=== PATIENT | male | born 1965 | race Caucasian/White ===

== ENCOUNTER 2016-11-19 17:56 | Emergency (ER) | payer MEDICAID ==
[2016-11-19 18:07] VITALS: BP 130/83
[2016-11-19] MEDS ORDERED: LORazepam 2 MG/ML MDV IVPUSH ONE (18:37)
[2016-11-19] MEDS ORDERED: Sodium Chloride 0.9% 1,000 ML IV SCH (18:45)
--- NOTE | 2016-11-19 18:57 | EDM.PDOC ---
[id number] 4d DIVERTICULITIS Time Seen by Provider: 11/19/16 18:15 Source: Reports: Patient, Family History Limitations: Reports: No limitations - History of Present Illness INITIAL COMMENTS - FREE TEXT/NARRATIVE: 51-year-old male with recurring gastrointestinal symptoms, pain, and known chronic recurring diverticulitis presents with 2 days of increased pain, diarrhea with hematochezia and nausea. He had a flareup 2 weeks ago but had improved but has never gone away completely. Timing/Duration: Reports: Day(s): (Worse for the last 2 days) Quality: Reports: cramping, stabbing Severity: moderate Associated Symptoms: Reports: diarrhea, bloody stools. Denies: chest pain, back pain - Related Data Allergies/ADRs: Allergies Allergy/AdvReac Type Severity Reaction Status Date / Time No Known Allergies Allergy Verified 11/19/16 18:07 Home Meds: Home Meds Esomeprazole [NexIUM] 40 mg PO DAILY 10/07/13 [History] Past Medical History HEENT History: Reports: Impaired vision Gastrointestinal History: Reports: Diverticulosis, Hiatal hernia Musculoskeletal History: Reports: Other (see below) Other Musculoskeletal History: Previous right hand procedure. Knee surgery Neurological History: Reports: Other (see below) Other Neuro History: Johnson's palsy Psychiatric History: Reports: Anxiety - Infectious Disease History Infectious Disease History: Reports: Chicken pox, Shingles - Past Surgical History HEENT Surgical History: Reports: Tonsillectomy Musculoskeletal Surgical History: Reports: Arthroscopic knee, Carpal tunnel Social & Family History - Tobacco Use Smoking Status *Q: Never Smoker Packs/Tins Daily: 0.5 Second Hand Smoke Exposure: No - Caffeine Use Caffeine Use: Reports: Coffee, Soda - Recreational Drug Use Recreational Drug Use: No ED ROS GENERAL - Review of Systems Review Of Systems: See Below Constitutional: Reports: chills, malaise HEENT: Reports: No symptoms Respiratory: Denies: Shortness of Breath Cardiovascular: Denies: Chest pain GI/Abdominal: Reports: Abdominal pain, Diarrhea, Hematochezia, Nausea : Reports: dysuria Skin: Reports: no symptoms Neurological: Reports: No Symptoms Psychiatric: Reports: Anxiety ED EXAM, GI/ABD - Physical Exam Exam: See Below Exam Limited By: No limitations General Appearance: alert, no apparent distress, anxious Eyes: bilateral: normal appearance (Normal hydration, no jaundice) Respiratory/Chest: no respiratory distress, lungs clear GI/Abdominal: soft, tenderness (Very tender with guarding in the suprapubic and left lower quadrant areas) Course - Vital Signs Last Recorded V/S: Last Vital Signs Temp 97.0 F 11/19/16 18:17 Pulse 75 11/19/16 18:17 Resp 16 11/19/16 18:17 BP 130/83 11/19/16 18:17 Pulse Ox 98 11/19/16 18:17 - Orders/Labs/Meds Orders: Active Orders 24 hr Category Date Time Status Abdomen Pelvis w Cont [CT] Stat Exams 11/19/16 19:16 Taken Iopamidol [Isovue-300 (61%)] Med 11/19/16 19:45 Active 135 ml IV . DIRECTED Sodium Chloride 0.9% [Normal Saline] 1,000 ml Med 11/19/16 18:45 Active IV ASDIRECTED Sodium Chloride 0.9% [Normal Saline] 80 ml Med 11/19/16 19:45 Active IV ASDIRECTED Sodium Chloride 0.9% [Saline Flush] Med 11/19/16 19:35 Active 10 ml FLUSH ASDIRECTED PRN Medication Orders Sodium Chloride (Normal Saline) 1,000 mls @ 500 mls/hr IV ASDIRECTED KEVIN Last Admin: 11/19/16 18:48 Dose: 500 mls/hr Sodium Chloride (Normal Saline) 80 mls @ 3 mls/sec IV ASDIRECTED KEVIN Last Admin: 11/19/16 19:54 Dose: 3 mls/sec Iopamidol (Isovue-300 (61%)) 135 ml IV . DIRECTED KEVIN Last Admin: 11/19/16 19:54 Dose: 135 ml Sodium Chloride (Saline Flush) 10 ml FLUSH ASDIRECTED PRN PRN Reason: Keep Vein Open Last Admin: 11/19/16 19:54 Dose: 10 ml Labs: Laboratory Tests 11/19/16 11/19/16 Range/Units 18:46 18:46 WBC 10.5 (4.5-11.0) K/uL RBC 4.63 (4.30-5.90) M/uL Hgb 14.2 (12.0-15.0) g/dL Hct 41.4 (40.0-54.0) % MCV 89 (80-98) fL MCH 31 (27-31) pg MCHC 34 (32-36) % Plt Count 204 (150-400) K/uL Neut % (Auto) 61 (36-66) % Lymph % (Auto) 28 (24-44) % [place] % (Auto) 7 H (2-6) % Eos % (Auto) 3 (2-4) % Baso % (Auto) 1 (0-1) % Sodium 143 (140-148) mmol/L Potassium 3.7 (3.6-5.2) mmol/L Chloride 106 (100-108) mmol/L Carbon Dioxide 29 (21-32) mmol/L Anion Gap 8.0 (5.0-14.0) mmol/L BUN 12 (7-18) mg/dL Creatinine 1.1 (0.8-1.3) mg/dL Est Cr Clr Drug Dosing 89.79 mL/min Estimated GFR (MDRD) > 60 (>60) Glucose 96 (74-106) mg/dL Calcium 8.2 L (8.5-10.1) mg/dL Meds: Medications Generic Name Dose Route Start Last Admin Trade Name Freq PRN Reason Stop Dose Admin Sodium Chloride 1,000 mls @ 500 mls/hr 11/19/16 18:45 11/19/16 18:48 Normal Saline IV 500 mls/hr ASDIRECTED KEVIN Administration Sodium Chloride 80 mls @ 3 mls/sec 11/19/16 19:45 11/19/16 19:54 Normal Saline IV 3 mls/sec ASDIRECTED KEVIN Administration Iopamidol 135 ml 11/19/16 19:45 11/19/16 19:54 Isovue-300 (61%) IV 135 ml . DIRECTED KEVIN Administration Sodium Chloride 10 ml 11/19/16 19:35 11/19/16 19:54 Saline Flush FLUSH 10 ml ASDIRECTED PRN Administration Keep Vein Open Discontinued Medications Generic Name Dose Route Start Last Admin Trade Name Freq PRN Reason Stop Dose Admin Lorazepam 1 mg 11/19/16 18:37 11/19/16 19:04 Ativan IVPUSH 11/19/16 18:38 1 mg ONETIME ONE Administration - Re-Assessments/Exams Free Text/Narrative Re-Assessment/Exam: 11/19/16 18:59 Normal saline at 500 mL an hour along with 1 mg of Ativan IV were given. CBC, BMP were obtained with the intention of obtaining a CT scan of the abdomen and pelvis with IV contrast. 11/19/16 20:58 1 mg of Ativan markedly improved the patient's anxiety. CBC was normal. Chemistry panel was also normal except a mildly low calcium. CT scan was then performed and revealed sigmoid colon wall thickening with stranding indicating a recurrence of his diverticulitis. There is also a possibility of an underlying neoplasm. Patient will be placed back on Flagyl 500 3 times daily and Bactrim DS twice daily for 10 days. He was also given 10 Ativan 1 mg tablets to use when necessary for anxiety and 10 hydrocodone to use very sparingly for extra pain control. If using hydrocodone he needs to also increase fiber, water intake or use MiraLax or stool softeners. She can return anytime if worsening. I emphasized the importance that he needs to have a colonoscopy or at least a sigmoidoscopy after his antibiotic treatment Departure - Departure Time of Disposition: 21:32 Disposition: Home, Self-Care 01 Condition: good Clinical Impression: Abdominal pain Qualifiers: Abdominal location: lower abdomen, unspecified Qualified Code(s): R10.30 - Lower abdominal pain, unspecified Diverticulitis Qualifiers: Diverticulitis site: large intestine Diverticulitis bleeding: with bleeding Diverticulitis complication: without perforation or abscess Qualified Code(s): K57.33 - Diverticulitis of large intestine without perforation or abscess with bleeding Instructions: Diverticulitis Referrals: PCP,None [Primary Care Provider] - Forms: ED Department Discharge Care Plan Goals: Take antibiotics as prescribed. Naproxen for pain should help and add stronger pain medications if needed. Use Ativan as prescribed for breakthrough anxiety. Recheck in the next several weeks to discuss a followup colonoscopy, or return sooner if not improving satisfactorily. Avoiding constipation is important. Consider getting a primary care provider at the clinic to follow progress. - My Orders Last 24 Hours: My Active Orders 11/19/16 18:45 Sodium Chloride 0.9% [Normal Saline] 1,000 ml IV ASDIRECTED 11/19/16 19:16 Abdomen Pelvis w Cont [CT] Stat 11/19/16 19:35 Sodium Chloride 0.9% [Saline Flush] 10 ml FLUSH ASDIRECTED PRN 11/19/16 19:45 Iopamidol [Isovue-300 (61%)] 135 ml IV . DIRECTED Sodium Chloride 0.9% [Normal Saline] 80 ml IV ASDIRECTED - Assessment/Plan Last 24 Hours: My Active Orders 11/19/16 18:45 Sodium Chloride 0.9% [Normal Saline] 1,000 ml IV ASDIRECTED 11/19/16 19:16 Abdomen Pelvis w Cont [CT] Stat 11/19/16 19:35 Sodium Chloride 0.9% [Saline Flush] 10 ml FLUSH ASDIRECTED PRN 11/19/16 19:45 Iopamidol [Isovue-300 (61%)] 135 ml IV . DIRECTED Sodium Chloride 0.9% [Normal Saline] 80 ml IV ASDIRECTED
[2016-11-19] MEDS ORDERED: Sodium Chloride 0.9% 10 ML Syringe FLUSH PRN (19:35)
[2016-11-19] MEDS ORDERED: Sodium Chloride 0.9% 80 ML IV SCH (19:45)
[2016-11-19] MEDS ORDERED: Iopamidol 612 MG/ML 150 ML Bottle IV SCH (19:45)
== END 2016-11-19 21:15 | disposition home or self-care (01) ==
LOC: JP.ED 17:56
DX: K57.33 Diverticulitis of large intestine without perforation or abscess with bleeding (principal); F41.9 Anxiety disorder, unspecified; Z98.890 Other specified postprocedural states; Z79.899 Other long term (current) drug therapy
CPT/HCPCS: 36415; 74177; 80048; 85025; 96361; 96374; 99285; J2060; J7030; J7040; J7050

== ENCOUNTER 2016-12-17 10:54 | Emergency (ER) | payer MEDICAID ==
[2016-12-17 11:11] VITALS: BP 137/90
--- NOTE | 2016-12-17 12:00 | EDM.PDOC ---
ED HPI GENERAL MEDICAL PROBLEM - General Chief Complaint: Abdominal Pain Stated Complaint: DIVERTICULITIS Time Seen by Provider: 12/17/16 11:23 Source of Information: Reports: Patient History Limitations: Reports: No Limitations - History of Present Illness INITIAL COMMENTS - FREE TEXT/NARRATIVE: History of present illness: [51-year-old male with a somewhat complex history that goes back over a year. He is having trouble with melena and bright red blood per rectum for over a year. He's had multiple bouts of diverticulitis. He's had more than [address] He's been told that he needs to have surgery or colonoscopy. In spite of all this he's been busy working and has delayed getting these things done. He presents now today with his who is crying and concerned he starting to have some suprapubic abdominal pain. He has lost about 120 pounds in the last year. My suspicion is that they know that he may have cancer but they're in denial and don't want to hear the bad news.] Review of systems: As per history of present illness and below otherwise all systems reviewed and negative. Past medical history: As per history of present illness and as reviewed below otherwise noncontributory. Surgical history: As per history of present illness and as reviewed below otherwise noncontributory. Social history: No reported history of drug or alcohol abuse. Family history: As per history of present illness and as reviewed below otherwise noncontributory. Physical exam: HEENT: Atraumatic, normocephalic, pupils reactive, negative for conjunctival pallor or scleral icterus, mucous membranes moist, throat clear, neck supple, nontender, trachea midline. Lungs: Clear to auscultation, breath sounds equal bilaterally, chest nontender. Heart: S1S2, regular, negative for clicks, rubs, or JVD. Abdomen: he has some suprapubic tenderness to palpation but no masses appreciated. Pelvis: Stable nontender. Genitourinary: Deferred. Rectal: Deferred. Extremities: Atraumatic, negative for cords or calf pain. Neurovascular unremarkable. Neuro: Awake, alert, oriented. Cranial nerves II through XII unremarkable. Cerebellum unremarkable. Motor and sensory unremarkable throughout. Exam nonfocal. Diagnostics: [CBC complete metabolic panel EKG and chest x-ray are being done in preparation for a colonoscopy on Saturday] Therapeutics: [] Impression: [diverticulitis with CT evidence concerning for a neoplastic process] Plan: [Dr. Livingston has visited with the patient and his and we are setting him up for colonoscopy on Saturday.] Definitive disposition and diagnosis as appropriate pending reevaluation and review of above. Abdomen Pain Score (Numeric/FACES): 8 - Related Data Allergies Allergy/AdvReac Type Severity Reaction Status Date / Time No Known Allergies Allergy Verified 12/17/16 11:13 Home Meds: Home Meds Esomeprazole [NexIUM] 40 mg PO DAILY 10/07/13 [History] LORazepam [Ativan] 0.5 mg PO Q6HR PRN 12/17/16 [History] Metronidazole [IJD: metroNIDAZOLE] 500 mg PO TID 12/17/16 [History] Sulfamethoxazole/Trimethoprim [Sulfamethoxazole-Tmp Ds Tablet] 1 tab PO BID [History] Past Medical History HEENT History: Reports: Impaired Vision Gastrointestinal History: Reports: Diverticulosis, Hiatal Hernia Musculoskeletal History: Reports: Other (See Below) Other Musculoskeletal History: Previous right hand procedure. Knee surgery Neurological History: Reports: Other (See Below) Other Neuro History: Johnson's palsy Psychiatric History: Reports: Anxiety - Infectious Disease History Infectious Disease History: Reports: Chicken Pox, Shingles - Past Surgical History Musculoskeletal Surgical History: Reports: Arthroscopic Knee, Carpal Tunnel Social & Family History - Tobacco Use Smoking Status *Q: Never Smoker Packs/Tins Daily: 0.5 Second Hand Smoke Exposure: No - Caffeine Use Caffeine Use: Reports: Coffee, Soda - Recreational Drug Use Recreational Drug Use: No ED ROS GENERAL - Review of Systems Review Of Systems: ROS reveals no pertinent complaints other than HPI. ED EXAM, GI/ABD - Physical Exam Exam: See Below Course - Vital Signs Last Recorded V/S: Last Vital Signs Temp 35.9 C 12/17/16 11:19 Pulse 95 12/17/16 11:19 Resp 16 12/17/16 11:19 BP 137/90 12/17/16 11:19 Pulse Ox 96 12/17/16 11:19 - Orders/Labs/Meds Orders: Active Orders 24 hr Category Date Time Status EKG Documentation Completion [RC] ASDIRECTED Care 12/17/16 11:53 Active Chest 2V [CR] Stat Exams 12/17/16 11:54 Ordered CBC WITH AUTO DIFF [HEME] Stat Lab 12/17/16 11:52 Ordered COMPREHENSIVE METABOLIC PN,CMP [CHEM] Stat Lab 12/17/16 11:52 Ordered EKG 12 Lead [EK] Stat Ther 12/17/16 11:53 Ordered Departure - Departure Time of Disposition: 12:00 Disposition: Home, Self-Care 01 Condition: fair Clinical Impression: Diverticulitis Qualifiers: Diverticulitis site: large intestine Diverticulitis bleeding: with bleeding Diverticulitis complication: unspecified complication status Qualified Code(s): K57.33 - Diverticulitis of large intestine without perforation or abscess with bleeding - Discharge Information Forms: ED Department Discharge - My Orders Last 24 Hours: My Active Orders 12/17/16 11:52 CBC WITH AUTO DIFF [HEME] Stat COMPREHENSIVE METABOLIC PN,CMP [CHEM] Stat 12/17/16 11:53 EKG Documentation Completion [RC] ASDIRECTED EKG 12 Lead [EK] Stat 12/17/16 11:54 Chest 2V [CR] Stat - Assessment/Plan Last 24 Hours: My Active Orders 12/17/16 11:52 CBC WITH AUTO DIFF [HEME] Stat COMPREHENSIVE METABOLIC PN,CMP [CHEM] Stat 12/17/16 11:53 EKG Documentation Completion [RC] ASDIRECTED EKG 12 Lead [EK] Stat 12/17/16 11:54 Chest 2V [CR] Stat
--- NOTE | 2016-12-18 10:18 | CR ---
Chest 2V HISTORY: No Clinical Info FINDINGS: Heart size within normal limits. Pulmonary vasculature within normal limits. No evidence f or focal consolidation or cardiopulmonary process. IMPRESSION: No radiographic evidence for acute cardiopulmonary process.
== END 2016-12-17 12:48 | disposition home or self-care (01) ==
LOC: JP.ED 10:54
DX: K57.33 Diverticulitis of large intestine without perforation or abscess with bleeding (principal); F41.9 Anxiety disorder, unspecified; Z98.890 Other specified postprocedural states; Z79.899 Other long term (current) drug therapy
CPT/HCPCS: 36415; 71020; 71020-26; 80053; 85025; 93005; 99284-25

== ENCOUNTER 2016-12-19 19:05 | Inpatient (IN) | payer MEDICAID ==
[2016-12-19] MEDS: Sodium Chloride 0.9% 1,000 ML IV SCH (19:39)
--- NOTE | 2016-12-19 20:34 | EDM.PDOC ---
ED HPI GENERAL MEDICAL PROBLEM - General Chief Complaint: Abdominal Pain Stated Complaint: STOMACH PAIN Time Seen by Provider: 12/19/16 19:07 Source of Information: Reports: Patient History Limitations: Reports: No Limitations - History of Present Illness INITIAL COMMENTS - FREE TEXT/NARRATIVE: History of present illness: [This 51-year-old male comes in basically for admission. He needs a colonoscopy but he does become so weak that we are afraid to is a crack at home. He gets lightheaded and dizzy when he stands up and even sitting in a chair he'll breakdown into a sweat. He has an abdominal pelvic CT is concerning for a neoplastic process and he was scheduled for a colonoscopy on Saturday but due to the trouble he is having now or having him come in for an admission and prepped and here and perhaps do a colonoscopy in the morning.] Review of systems: As per history of present illness and below otherwise all systems reviewed and negative. Past medical history: As per history of present illness and as reviewed below otherwise noncontributory. Surgical history: As per history of present illness and as reviewed below otherwise noncontributory. Social history: No reported history of drug or alcohol abuse. Family history: As per history of present illness and as reviewed below otherwise noncontributory. Physical exam: HEENT: Atraumatic, normocephalic, pupils reactive, negative for conjunctival pallor or scleral icterus, mucous membranes moist, throat clear, neck supple, nontender, trachea midline. Lungs: Clear to auscultation Heart: S1S2, regular Abdomen: He has some generalized nonspecific tenderness and marked tenderness in left lower quadrant Extremities: Atraumatic, negative for cords or calf pain. Neurovascular unremarkable. Neuro: Awake, alert, oriented. Exam nonfocal. Diagnostics: [CBC complete dental panel and UA have been ordered he is getting IV fluids] Therapeutics: [] Impression: [Abdominal pain with CT evidence for concerning for a possible neoplastic process he needs a colonoscopy] Plan: [Patient will be admitted Franca Neil here seeing him] Definitive disposition and diagnosis as appropriate pending reevaluation and review of above. Suprapubic Pain Score (Numeric/FACES): 5 - Related Data Allergies Allergy/AdvReac Type Severity Reaction Status Date / Time No Known Allergies Allergy Verified 12/17/16 11:13 Home Meds: Home Meds Esomeprazole [NexIUM] 40 mg PO DAILY 10/07/13 [History] LORazepam [Ativan] 0.5 mg PO Q6HR PRN 12/17/16 [History] Metronidazole [IJD: metroNIDAZOLE] 500 mg PO TID 12/17/16 [History] Sulfamethoxazole/Trimethoprim [Sulfamethoxazole-Tmp Ds Tablet] 1 tab PO BID [History] Past Medical History HEENT History: Reports: Impaired Vision Gastrointestinal History: Reports: Diverticulosis, Hiatal Hernia Musculoskeletal History: Reports: Other (See Below) Other Musculoskeletal History: Previous right hand procedure. Knee surgery Neurological History: Reports: Other (See Below) Other Neuro History: Johnson's palsy Psychiatric History: Reports: Anxiety - Infectious Disease History Infectious Disease History: Reports: Chicken Pox, Mumps, Shingles - Past Surgical History HEENT Surgical History: Reports: Tonsillectomy Musculoskeletal Surgical History: Reports: Arthroscopic Knee, Carpal Tunnel Social & Family History - Tobacco Use Smoking Status *Q: Never Smoker Packs/Tins Daily: 0.5 Second Hand Smoke Exposure: No - Caffeine Use Caffeine Use: Reports: Coffee - Recreational Drug Use Recreational Drug Use: No ED ROS GENERAL - Review of Systems Review Of Systems: ROS reveals no pertinent complaints other than HPI. ED EXAM, GI/ABD - Physical Exam Exam: See Below Course - Vital Signs Last Recorded V/S: Last Vital Signs Temp 36.5 C 12/19/16 19:38 Pulse 72 12/19/16 19:38 Resp 16 12/19/16 19:38 BP 142/86 H 12/19/16 19:38 Pulse Ox 98 12/19/16 19:38 - Orders/Labs/Meds Orders: Active Orders 24 hr Category Date Time Status UA W/MICROSCOPIC [URIN] Stat Lab 12/19/16 19:08 Uncollected Sodium Chloride 0.9% [Normal Saline] 1,000 ml Med 12/19/16 19:15 Active IV ASDIRECTED Medication Orders Sodium Chloride (Normal Saline) 1,000 mls @ 150 mls/hr IV ASDIRECTED KEVIN Last Admin: 12/19/16 19:39 Dose: 150 mls/hr Labs: Laboratory Tests 12/19/16 12/19/16 Range/Units 19:08 19:08 WBC 7.7 (4.5-11.0) K/uL RBC 4.79 (4.30-5.90) M/uL Hgb 14.7 (12.0-15.0) g/dL Hct 41.7 (40.0-54.0) % MCV 87 (80-98) fL MCH 31 (27-31) pg MCHC 35 (32-36) % Plt Count 238 (150-400) K/uL Neut % (Auto) 55 (36-66) % Lymph % (Auto) 32 (24-44) % [place] % (Auto) 9 H (2-6) % Eos % (Auto) 4 (2-4) % Baso % (Auto) 2 H (0-1) % Sodium 143 (140-148) mmol/L Potassium 3.7 (3.6-5.2) mmol/L Chloride 106 (100-108) mmol/L Carbon Dioxide 27 (21-32) mmol/L Anion Gap 10.4 (5.0-14.0) mmol/L BUN 9 (7-18) mg/dL Creatinine 1.4 H (0.8-1.3) mg/dL Est Cr Clr Drug Dosing 70.55 mL/min Estimated GFR (MDRD) 53 L (>60) Glucose 119 H (74-106) mg/dL Calcium 8.7 (8.5-10.1) mg/dL Total Bilirubin 0.2 (0.2-1.0) mg/dL AST 25 (15-37) U/L ALT 24 (12-78) U/L Alkaline Phosphatase 98 (46-116) U/L Total Protein 7.2 (6.4-8.2) g/dL Albumin 3.3 L (3.4-5.0) g/dL Globulin 3.9 H (2.3-3.5) g/dL Albumin/Globulin Ratio 0.9 L (1.2-2.2) Meds: Medications Generic Name Dose Route Start Last Admin Trade Name Freq PRN Reason Stop Dose Admin Sodium Chloride 1,000 mls @ 150 mls/hr 12/19/16 19:15 12/19/16 19:39 Normal Saline IV 150 mls/hr ASDIRECTED KEVIN Administration Departure - Departure Time of Disposition: 20:34 Disposition: Home, Self-Care 01 Condition: fair Clinical Impression: Weakness Abdominal pain Qualifiers: Abdominal location: unspecified location Qualified Code(s): R10.9 - Unspecified abdominal pain - Discharge Information Forms: ED Department Discharge - My Orders Last 24 Hours: My Active Orders 12/19/16 19:08 UA W/MICROSCOPIC [URIN] Stat 12/19/16 19:15 Sodium Chloride 0.9% [Normal Saline] 1,000 ml IV ASDIRECTED - Assessment/Plan Last 24 Hours: My Active Orders 12/19/16 19:08 UA W/MICROSCOPIC [URIN] Stat 12/19/16 19:15 Sodium Chloride 0.9% [Normal Saline] 1,000 ml IV ASDIRECTED
[2016-12-19] MEDS ORDERED: Naloxone 0.4 MG/ML SDV IVPUSH PRN (21:27)
[2016-12-19] MEDS ORDERED: Acetaminophen 325 MG Tab PO PRN (21:27)
[2016-12-19] MEDS ORDERED: HYDROmorphone/Normal Saline 15 MG/30 ML PCA IV PRN (21:27)
[2016-12-19] MEDS ORDERED: Zolpidem 5 MG Tab PO PRN (21:27)
[2016-12-19] MEDS ORDERED: LORazepam 2 MG/ML MDV IV PRN (21:27)
[2016-12-19] MEDS ORDERED: Albuterol 0.083% 2.5 MG/3 ML Neb Soln NEB PRN (21:27)
[2016-12-19] MEDS: Pantoprazole 40 MG Vial IV SCH (21:58)
[2016-12-19] MEDS ORDERED: Bisacodyl 5 MG Tab PO ONE (22:00)
[2016-12-19] MEDS ORDERED: Polyethylene Glycol 3350 Powder 17 GM Packet PO ONE (22:00)
[2016-12-19] MEDS ORDERED: Polyethylene Glycol 3350 Powder 238 GM Bot PO ONE (22:12)
--- NOTE | 2016-12-19 22:45 | PCM.HP ---
H&P History of Present Illness - General Date of Service: 12/19/16 Admit Problem/Dx: Admission Diagnosis/Problem Admission Diagnosis/Problem Abdominal pain Source of Information: Patient, Family () - History of Present Illness Initial Comments - Free Text/Narative: - History of Present Illness INITIAL COMMENTS - FREE TEXT/NARRATIVE: History of present illness: [This 51-year-old male comes in basically for admission. He needs a colonoscopy but he does become so weak that we are afraid to do at home. He gets lightheaded and dizzy when he stands up and even sitting in a chair he'll breaks into a sweat. He has an abdominal pelvic CT is concerning for a neoplastic process and he was scheduled for a colonoscopy on Saturday but due to the trouble he is having now or having him come in for an admission and prepped and here and perhaps do a colonoscopy in the morning. reports weight loss of 117 pounds over the past year without diet or exercise. bloody stools for the past few weeks. Review of systems: As per history of present illness and below otherwise all systems reviewed and negative. Past medical history: As per history of present illness and as reviewed below otherwise noncontributory. Surgical history: As per history of present illness and as reviewed below otherwise noncontributory. Social history: No reported history of drug or alcohol abuse. Family history: As per history of present illness and as reviewed below otherwise noncontributory. Onset of Symptoms: Reports: Gradual Duration of Symptoms: Reports: Constant, Getting Worse Location: Reports: Abdomen Quality: Reports: Ache, Sharp Severity: Severe Improves with: Reports: None Worsens with: Reports: Eating Context: Reports: Other (weight loss of 117 pounds, bloody stools, generalized weakness, abdominal pain) Associated Symptoms: Reports: Fever/Chills (cold sweat), Nausea/Vomiting, Shortness of Breath (with activity), Syncope, Weakness Suprapubic Pain Score (Numeric/FACES): 5 - Related Data Allergies/Adverse Reactions: Allergies Allergy/AdvReac Type Severity Reaction Status Date / Time No Known Allergies Allergy Verified 12/17/16 11:13 Home Medications: Home Meds Esomeprazole [NexIUM] 40 mg PO DAILY 10/07/13 [History] LORazepam [Ativan] 0.5 mg PO Q6HR PRN 12/17/16 [History] Metronidazole [IJD: metroNIDAZOLE] 500 mg PO TID 12/17/16 [History] Sulfamethoxazole/Trimethoprim [Sulfamethoxazole-Tmp Ds Tablet] 1 tab PO BID [History] Past Medical History HEENT History: Reports: Impaired Vision Gastrointestinal History: Reports: Diverticulosis, Hiatal Hernia Musculoskeletal History: Reports: Other (See Below) Other Musculoskeletal History: Previous right hand procedure. Knee surgery Neurological History: Reports: Other (See Below) Other Neuro History: Johnson's palsy Psychiatric History: Reports: Anxiety - Infectious Disease History Infectious Disease History: Reports: Chicken Pox, Mumps, Shingles - Past Surgical History HEENT Surgical History: Reports: Tonsillectomy Musculoskeletal Surgical History: Reports: Arthroscopic Knee, Carpal Tunnel Social & Family History - Tobacco Use Smoking Status *Q: Never Smoker Packs/Tins Daily: 0.5 Second Hand Smoke Exposure: No - Caffeine Use Caffeine Use: Reports: Coffee - Recreational Drug Use Recreational Drug Use: No - Living Situation & Occupation Living situation: Reports: Occupation: Employed (lives with and 4 children ages 17yr,14yr,9yr & 7month on [place]) H&P Review of Systems - Review of Systems: Review Of Systems: See Below General: Reports: Weakness, Fatigue, Decreased Appetite, Weight Loss HEENT: Reports: No Symptoms Pulmonary: Reports: Shortness of Breath Cardiovascular: Reports: Lightheadedness, Syncope (near syncope and syncope.) Gastrointestinal: Reports: Abdominal Pain, Bloody Stool, Hematochezia, Nausea, Vomiting Genitourinary: Reports: No Symptoms Musculoskeletal: Reports: No Symptoms Skin: Reports: No Symptoms Psychiatric: Reports: No Symptoms Neurological: Reports: No Symptoms Hematologic/Lymphatic: Reports: No Symptoms Immunologic: Reports: No Symptoms Exam - Exam Exam: See Below - Vital Signs Vital Signs: Last Vital Signs Temp 98.7 C H 12/19/16 21:27 Pulse 76 12/19/16 21:27 Resp 18 12/19/16 21:27 BP 128/81 12/19/16 21:27 Pulse Ox 68 L 12/19/16 21:27 Weight: 87.4 kg - Exam General: Alert, Oriented, Cooperative, Mild Distress HEENT: PERRLA, Conjunctiva Clear, EACs Clear, EOMI, Hearing Intact, Mucosa Moist & [place], Nares Patent, Normal Nasal Septum, Posterior Pharynx Clear, Pupils Equal, Pupils Reactive, TMs Clear Neck: Supple, Trachea Midline Lungs: Clear to Auscultation, Normal Respiratory Effort Cardiovascular: Regular Rate, Regular Rhythm, Normal S1, Normal S2 Abdomen: Soft, Tenderness, Hypoactive Bowel Sounds (Male) Exam: Deferred Rectal (Males) Exam: Deferred Back Exam: Normal Inspection, Full Range of Motion Extremities: Normal Inspection, Normal Pulses Skin: Warm, Dry, Intact Neuro Extensive - Mental Status: Alert, Oriented x3, Normal Mood/Affect Psychiatric: Alert, Normal Affect, Normal Mood - Patient Data Result Diagrams: 12/19/16 19:08 12/19/16 19:08 *Q Meaningful Use (ADM) - VTE *Q VTE Criteria *Q: - Stroke *Q Stroke Criteria *Q: - AMI *Q AMI Criteria *Q: - Problem List (1) Hematochezia SNOMED Code(s): 620632643 ICD Code: K92.1 - MELENA Status: Acute Current Visit: Yes (2) Abdominal pain SNOMED Code(s): 97116085 ICD Code: R10.9 - UNSPECIFIED ABDOMINAL PAIN Status: Acute Priority: High Current Visit: Yes Qualifiers: Abdominal location: generalized Qualified Code(s): R10.84 - Generalized abdominal pain (3) Weakness SNOMED Code(s): 68509479 ICD Code: R53.1 - WEAKNESS Status: Acute Priority: High Current Visit: Yes Problem List Initiated/Reviewed/Updated: Yes Orders Last 24hrs: Active Orders 24 hr Category Date Time Status Patient Status [ADT] Routine ADT 12/19/16 21:27 Active Ambulate [RC] QID Care 12/19/16 21:27 Active Communication Order [RC] STAT Care 12/19/16 21:27 Active Intake and Output [RC] QSHIFT Care 12/19/16 21:27 Active Notify Provider Consults [RC] ASDIRECTED Care 12/19/16 21:27 Active Notify Provider [RC] PRN Care 12/19/16 21:27 Active Oxygen Therapy [RC] PRN Care 12/19/16 21:27 Active TIP FIXER Record [RC] PER UNIT ROUTINE Care 12/19/16 21:27 Active Pulse Oximetry [RC] CONTINUOUS Care 12/19/16 21:27 Active RT Aerosol Therapy [RC] ASDIRECTED Care 12/19/16 21:27 Active Up With Assistance [RC] ASDIRECTED Care 12/19/16 21:27 Active VTE/DVT Education [RC] Per Unit Routine Care 12/19/16 21:27 Active Vital Signs [RC] Q4H Care 12/19/16 21:27 Active Consult to Physician [CONS] Routine Cons 12/19/16 21:27 Ordered Nothing per Oral Now Diet [DIET] Diet 12/19/16 Breakfast Active BASIC METABOLIC PANEL,BMP [CHEM] AM Lab 12/20/16 05:11 Ordered CBC WITH AUTO DIFF [HEME] AM Lab 12/20/16 05:11 Ordered LACTIC ACID [CHEM] AM Lab 12/20/16 05:11 Ordered Acetaminophen [Tylenol] Med 12/19/16 21:27 Active 650 mg PO Q4H PRN Albuterol [Proventil Neb Soln] Med 12/19/16 21:27 Active 2.5 mg NEB Q4H PRN HYDROmorphone/Normal Saline [Dilaudid TIP FIXER 15 MG in NS Med 12/19/16 21:27 Active 30 ML] See Protocol IV ASDIRECTED PRN LORazepam [Ativan] Med 12/19/16 21:27 Active 1 mg IV Q6H PRN Naloxone [Narcan] Med 12/19/16 21:27 Active 0.4 mg IVPUSH Q2M PRN Ondansetron [Zofran] Med 12/19/16 21:27 Active 4 mg IV Q4H PRN Pantoprazole [ProTONIX IV] Med 12/19/16 21:27 Active 40 mg IV Q12H Sodium Chloride 0.9% [Normal Saline] 1,000 ml Med 12/19/16 21:27 Active IV ASDIRECTED Zolpidem [Ambien] Med 12/19/16 21:27 Active 5 mg PO BEDTIME PRN Medication Discontinuation Instructions [OM.PC] Stat Oth 12/19/16 21:27 Ordered Resuscitation Status Routine Resus Stat 12/19/16 20:40 Ordered Medication Orders Acetaminophen (Tylenol) 650 mg PO Q4H PRN PRN Reason: Pain (Mild 1-3)/fever Albuterol (Proventil Neb Soln) 2.5 mg NEB Q4H PRN PRN Reason: Shortness Of Breath/wheezing Hydromorphone HCl (Dilaudid Application Support Administrator 15 Mg In Ns 30 Ml) 0 mg IV ASDIRECTED PRN; Protocol PRN Reason: Pain Last Admin: 12/19/16 21:51 Dose: 15 mg Sodium Chloride (Normal Saline) 1,000 mls @ 150 mls/hr IV ASDIRECTED KEVIN Last Admin: 12/19/16 19:39 Dose: 150 mls/hr Sodium Chloride (Normal Saline) 1,000 mls @ 125 mls/hr IV ASDIRECTED KEVIN Lorazepam (Ativan) 1 mg IV Q6H PRN PRN Reason: Nausea/Vomiting Naloxone HCl (Narcan) 0.4 mg IVPUSH Q2M PRN PRN Reason: Respiratory Distress Ondansetron HCl (Zofran) 4 mg IV Q4H PRN PRN Reason: Nausea/Vomiting Pantoprazole Sodium (Protonix Iv) 40 mg IV Q12H [facility] Last Admin: 12/19/16 21:58 Dose: 40 mg Zolpidem Tartrate (Ambien) 5 mg PO BEDTIME PRN PRN Reason: Sleep Assessment/Plan Comment:: ASSESSMENT / PLAN History of present illness: [This 51-year-old male comes in basically for admission. He needs a colonoscopy but he does become so weak that we are afraid to do at home. He gets lightheaded and dizzy when he stands up and even sitting in a chair he'll breaks into a sweat. He has an abdominal pelvic CT is concerning for a neoplastic process and he was scheduled for a colonoscopy on Saturday but due to the trouble he is having now or having him come in for an admission and prepped and here and perhaps do a colonoscopy in the morning. reports weight loss of 117 pounds over the past year without diet or exercise. bloody stools for the past few weeks. reports on Saturday passed a large hairy blood clot. Plan -Admit to ICU med overflow for further monitoring -IV fluids for rehydration NS at 125 mL per hour -Advise to notify nurses of any chest pain or other symptoms -TIP FIXER dilaudid for pain control -Order for a colonscopy, bowel prep started on admission -And a.m. labs: CBC, BMP Maintenance issues -Orders home meds: hold or changed to IV -Nutrition: NPO -Harrington catheter not indicated at this time -DVT: scd, ambulation -PPI; Protonix 40mg iv bid CODE STATUS: Full Admission status: Admit to ICU medication overflow Admission justification. This patient will be admitted for inpatient services and is medically appropriate meeting medical necessity for inpatient admission as outlined in my documentation. I reasonably expect the patient will require inpatient services that span. Time over 2 midnights. I reasonably expect this patient to be discharged or transferred within 96 hours after admission to the critical [facility]. Disposition; home Primary care provider: no PCP at this time.
[2016-12-20] MEDS: Sodium Chloride 0.9% 1,000 ML IV SCH ×4 (02:24→21:53)
[2016-12-20] MEDS: Pantoprazole 40 MG Vial IV SCH ×2 (08:57→21:52)
--- NOTE | 2016-12-20 09:21 | PCM.PN ---
- General Info Date of Service: 12/20/16 Functional Status: Reports: pain controlled - Review of Systems General: Reports: Weakness. Denies: Fever, Chills Pulmonary: Reports: no symptoms Cardiovascular: Reports: No Symptoms Gastrointestinal: Reports: Abdominal pain. Denies: Decreased appetite, Diarrhea , Difficulty swallowing Systems Review Comment:: This patient is a 51-year-old gentleman is experienced 100 pound weight loss over the past year. He's had 2 recent episodes of diverticulitis and after each hospitalization was recommended that he follow up with a colonoscopy which he's not been able to do yet. He's now reached the point where he eats he developed severe cramping abdominal pain and bloating which did not improve until he's able to have a bowel movement. He's become very weak because of his inability to eat. He was admitted through the emergency department last night CT scan and showed evidence of possible mass in the colon. Plan is to proceed with colonoscopy later today by Dr. Livingston. - Patient Data Vitals - most recent: Last Vital Signs Temp 98.1 F 12/20/16 08:25 Pulse 78 12/20/16 08:25 Resp 17 12/20/16 08:25 BP 128/83 12/20/16 08:25 Pulse Ox 98 12/20/16 08:25 Weight - most recent: 192 lb 10.944 oz I&O - last 24 hours: Intake & Output 12/19/16 12/20/16 12/20/16 22:59 06:59 14:59 Intake Total 1564 Balance 1564 Lab Results last 24 hrs: Laboratory Results - last 24 hr 12/20/16 12/20/16 12/20/16 Range/Units 04:34 04:34 04:34 WBC 6.7 (4.5-11.0) K/uL RBC 4.52 (4.30-5.90) M/uL Hgb 13.8 (12.0-15.0) g/dL Hct 39.6 L (40.0-54.0) % MCV 88 (80-98) fL MCH 31 (27-31) pg MCHC 35 (32-36) % Plt Count 229 (150-400) K/uL Neut % (Auto) 48 (36-66) % Lymph % (Auto) 35 (24-44) % [place] % (Auto) 10 H (2-6) % Eos % (Auto) 5 H (2-4) % Baso % (Auto) 1 (0-1) % Sodium 143 (140-148) mmol/L Potassium 3.9 (3.6-5.2) mmol/L Chloride 109 H (100-108) mmol/L Carbon Dioxide 24 (21-32) mmol/L Anion Gap 13.9 (5.0-14.0) mmol/L BUN 7 (7-18) mg/dL Creatinine 1.2 (0.8-1.3) mg/dL Est Cr Clr Drug Dosing TNP Estimated GFR (MDRD) > 60 (>60) Glucose 104 (74-106) mg/dL Lactic Acid 0.8 (0.4-2.0) mmol/L Calcium 8.5 (8.5-10.1) mg/dL Med Orders - Current: Current Medications Acetaminophen (Tylenol) 650 mg PO Q4H PRN PRN Reason: Pain (Mild 1-3)/fever Albuterol (Proventil Neb Soln) 2.5 mg NEB Q4H PRN PRN Reason: Shortness Of Breath/wheezing Hydromorphone HCl (Dilaudid Chemist 15 Mg In Ns 30 Ml) 0 mg IV ASDIRECTED PRN; Protocol PRN Reason: Pain Last Admin: 12/19/16 21:51 Dose: 15 mg Sodium Chloride (Normal Saline) 1,000 mls @ 125 mls/hr IV ASDIRECTED KEVIN Last Admin: 12/20/16 09:03 Dose: 125 mls/hr Lorazepam (Ativan) 1 mg IV Q6H PRN PRN Reason: Nausea/Vomiting Last Admin: 12/20/16 01:28 Dose: 1 mg Naloxone HCl (Narcan) 0.4 mg IVPUSH Q2M PRN PRN Reason: Respiratory Distress Ondansetron HCl (Zofran) 4 mg IV Q4H PRN PRN Reason: Nausea/Vomiting Pantoprazole Sodium (Protonix Iv) 40 mg IV Q12H [facility] Last Admin: 12/20/16 08:57 Dose: 40 mg Zolpidem Tartrate (Ambien) 5 mg PO BEDTIME PRN PRN Reason: Sleep Discontinued Medications Bisacodyl (Dulcolax) 20 mg PO ASDIRECTED ONE Stop: 12/19/16 22:01 Last Admin: 12/19/16 22:15 Dose: 20 mg Sodium Chloride (Normal Saline) 1,000 mls @ 150 mls/hr IV ASDIRECTED KEVIN Last Admin: 12/20/16 02:24 Dose: 150 mls/hr Polyethylene Glycol (Miralax) 0 gm PO ONETIME ONE Stop: 12/19/16 22:01 Last Admin: 12/19/16 22:26 Dose: Not Given Polyethylene Glycol (Miralax) 238 gm PO ONETIME ONE Stop: 12/19/16 22:13 Last Admin: 12/19/16 22:34 Dose: 238 gram - Exam General: alert, oriented, cooperative, mild distress Lungs: Clear to auscultation, Normal respiratory effort Cardiovascular: Regular Rate, Regular Rhythm, No Murmurs Abdomen: bowel sounds present, soft, no tenderness, no distension Extremities: no edema Skin: warm, dry, intact - Problem List Review Problem List Initiated/Reviewed/Updated: Yes - My Orders Last 24 Hours: My Active Orders 12/21/16 05:00 BASIC METABOLIC PANEL,BMP [CHEM] Timed CBC WITH AUTO DIFF [HEME] Timed - Plan Plan:: ASSESSMENT / PLAN POSSIBLE COLON MASS-history of 100 pound weight loss over the past year and symptoms of obstruction -Admit to ICU med overflow for further monitoring -IV fluids for rehydration NS at 125 mL per hour -TOBACCO CLOTH RECLAIMER dilaudid for pain control -Colonoscopy today with Dr. Livingston Maintenance issues -Orders home meds: hold or changed to IV -Nutrition: NPO -Harrington catheter not indicated at this time -DVT: scd, ambulation -PPI; Protonix 40mg iv bid CODE STATUS: Full Admission status: Admit to ICU medication overflow Admission justification. This patient will be admitted for inpatient services and is medically appropriate meeting medical necessity for inpatient admission as outlined in my documentation. I reasonably expect the patient will require inpatient services that span. Time over 2 midnights. I reasonably expect this patient to be discharged or transferred within 96 hours after admission to the critical access hospital. Disposition; home Primary care provider: no PCP at this time.
[2016-12-20] MEDS: LORazepam 2 MG/ML MDV IV PRN ×4 (09:47→22:45)
[2016-12-20] MEDS ORDERED: Midazolam 1 MG/ML 2 ML SDV ONE (11:19)
[2016-12-20] MEDS ORDERED: Propofol 200 MG/20 ML SDV ONE (11:19)
[2016-12-20] MEDS ORDERED: fentaNYL 100 MCG/2 ML SDV ONE (11:19)
--- NOTE | 2016-12-20 14:05 | OR ---
DATE OF PROCEDURE: 12/19/2016 PROCEDURE: Colonoscopy. FINDINGS: Partially-obstructing mass at sigmoid colon (20 cm to the anal verge). PREOPERATIVE DIAGNOSIS: Colon mass. POSTOPERATIVE DIAGNOSIS: Colon mass. COMPLICATIONS: None. JACQUARD LOOM CARPET WEAVER: None. ANESTHESIA: MAC. INDICATIONS: A pleasant gentleman with significant weight loss and known mass on CT scan, for approximately one year. RISKS: Risks, benefits, alternatives, and limitations including, but not limited to infection, bleeding, and perforation were explained to the patient, and he wished to proceed. PROCEDURE IN DETAIL: The patient was placed in left lateral decubitus position. Digital rectal exam was performed without abnormality. The scope was advanced to the area of the sigmoid colon. At 20 cm from the anal verge, a partially-obstructing mass was noted. This precluded the ability to pass the mass. This was biopsied x6 in multiple locations. Malinda ink was placed at multiple locations. This was brought back and retroflexed. The patient also had a small rectal polyp, which was completely removed using cold biopsy forceps. The patient tolerated the procedure well. This is most likely a colorectal malignancy. Nonetheless, if this turns out to be benign, which I do not feel it is, this requires resection due to its obstructive nature. Dakota Livingston MD /[id number]
[2016-12-20] MEDS ORDERED: Sennosides 8.6 MG Tab PO SCH (21:00)
[2016-12-20] MEDS: Sennosides 8.6 MG Tab PO SCH (21:52)
[2016-12-21] MEDS: LORazepam 2 MG/ML MDV IV PRN ×3 (04:59→22:32)
[2016-12-21] MEDS: Pantoprazole 40 MG Vial IV SCH ×2 (09:15→21:25)
[2016-12-21] MEDS ORDERED: fentaNYL 250 MCG/5 ML SDV ONE ×3 (09:35→12:11)
[2016-12-21] MEDS ORDERED: Succinylcholine/Normal Saline 200 MG/10 ML Syringe ONE (09:37)
[2016-12-21] MEDS ORDERED: Neostigmine Methylsulfate 1 MG/ML 5 ML Syringe ONE (09:37)
[2016-12-21] MEDS ORDERED: Dexamethasone 4 MG/ML SDV ONE (09:37)
[2016-12-21] MEDS ORDERED: Rocuronium 50 MG/5 ML Vial ONE ×2 (09:37→11:56)
[2016-12-21] MEDS ORDERED: Propofol 200 MG/20 ML SDV ONE (09:37)
[2016-12-21] MEDS ORDERED: Ondansetron 4 MG/2 ML SDV ONE (09:37)
[2016-12-21] MEDS ORDERED: Naloxone 0.4 MG/ML SDV IVPUSH PRN (09:41)
[2016-12-21] MEDS ORDERED: fentaNYL 100 MCG/2 ML SDV ONE (11:34)
[2016-12-21] MEDS ORDERED: Sodium Chloride 0.9% 10 ML ONE (11:34)
[2016-12-21] MEDS ORDERED: Lactated Ringers 1,000 ML ONE (11:36)
[2016-12-21] MEDS ORDERED: ceFAZolin 1 GM Vial ONE (11:43)
[2016-12-21] MEDS ORDERED: METRONIDAZOLE IV ONE (12:00)
[2016-12-21] MEDS ORDERED: [UNRECOGNIZED DRUG - OTHER] IV ONE (12:00)
[2016-12-21] MEDS: fentaNYL 2,500 MCG in Sodium Chloride 0.9% 200 ML EPIDUR SCH (14:00)
[2016-12-21] MEDS ORDERED: Scopolamine 1.5 MG Transdermal Patch TRDERM SCH (14:21)
[2016-12-21] MEDS ORDERED: hydrOXYzine HCl 50 MG/ML SDV IM PRN (14:21)
[2016-12-21] MEDS: Sodium Chloride 0.9% 1,000 ML IV SCH (14:38)
--- NOTE | 2016-12-21 14:56 | PN ---
DATE OF SERVICE: 12/21/2016 SUBJECTIVE: The patient has worsened overnight. He is essentially showing signs and symptoms now of complete bowel obstruction. As noted on the colonoscopy yesterday, the scope was unable to be advanced past this mass. OBJECTIVE: VITAL SIGNS: Stable. CARDIOVASCULAR: Regular rate. RESPIRATORY: Lungs clear to consultation bilaterally. ABDOMEN: Bowel sounds positive, now increasingly distended, pain with palpation. Mild rebound and mild guarding. ASSESSMENT: Colon mass. PLAN: The patient will be taken emergently to the operating room. The preferred course would be to await pathology. However, the patient is essentially completely bowel obstructed, in extreme pain, and there is concern always for perforation or worsening obstruction. We discussed risks, benefits, alternatives, and limitations including, but not limited to infection, bleeding, the risk of the surgery including injury to ureters, blood vessels, and requirement for reoperation, the role of ostomies, and other risks. The patient understands these risks and wishes to proceed. Dakota Livingston MD /[id number]
[2016-12-21] MEDS: Acetaminophen 1,000 MG in Premix Bag 1 BAG IV PRN ×2 (15:12→21:26)
[2016-12-21] MEDS: Sennosides 8.6 MG Tab PO SCH (21:25)
[2016-12-21] MEDS: Tamsulosin 0.4 MG Cap.ER PO SCH (21:25)
[2016-12-22] MEDS: Sodium Chloride 0.9% 1,000 ML IV SCH (03:49)
[2016-12-22] MEDS: LORazepam 2 MG/ML MDV IV PRN (04:08)
[2016-12-22] MEDS: fentaNYL 2,500 MCG in Sodium Chloride 0.9% 200 ML EPIDUR SCH (07:56)
[2016-12-22] MEDS ORDERED: diphenhydrAMINE 50 MG/ML SDV IVPUSH PRN (08:13)
[2016-12-22] MEDS ORDERED: Naloxone 0.4 MG/ML SDV IV PRN ×2 (08:14→12:12)
[2016-12-22] MEDS ORDERED: Tamsulosin 0.4 MG Cap.ER PO ONE (09:30)
[2016-12-22] MEDS: Bisacodyl 5 MG Tab PO SCH ×2 (09:51→20:32)
[2016-12-22] MEDS: Enoxaparin 40 MG/0.4 ML Syringe SUBCUT SCH ×2 (09:52→13:55)
[2016-12-22] MEDS: Acetaminophen 500 MG Tab PO SCH ×3 (09:52→22:41)
[2016-12-22] MEDS: Pantoprazole 40 MG Vial IV SCH ×2 (09:52→20:32)
[2016-12-22] MEDS: Ondansetron 4 MG/2 ML SDV IV PRN (10:17)
[2016-12-22] MEDS: Ibuprofen 600 MG Tab PO SCH ×3 (10:52→17:12)
[2016-12-22] MEDS ORDERED: fentaNYL 25 MCG/HR Transdermal Patch TRDERM SCH (12:00)
[2016-12-22] MEDS: HYDROmorphone/Normal Saline 15 MG/30 ML PCA IV PRN (12:57)
[2016-12-22] MEDS: SCOPOLAMINE PATCH CHECK TOP SCH (13:47)
[2016-12-22] MEDS: Sennosides 8.6 MG Tab PO SCH (16:19)
[2016-12-22] MEDS: LORazepam 1 MG Tab PO PRN (16:40)
[2016-12-22] MEDS ORDERED: Ketorolac 60 MG/2 ML SDV IM ONE (16:43)
[2016-12-22] MEDS: VERIFY FENT PATCH TOP SCH (20:33)
[2016-12-22] MEDS: Tamsulosin 0.4 MG Cap.ER PO SCH (20:33)
[2016-12-23] MEDS: Ibuprofen 600 MG Tab PO SCH ×5 (00:15→23:28)
[2016-12-23] MEDS: LORazepam 1 MG Tab PO PRN ×3 (03:21→22:00)
[2016-12-23] MEDS: Acetaminophen 500 MG Tab PO SCH ×4 (03:22→21:56)
[2016-12-23] MEDS: Sodium Chloride 0.9% 1,000 ML IV SCH ×2 (06:13→19:30)
[2016-12-23] MEDS: Enoxaparin 40 MG/0.4 ML Syringe SUBCUT SCH (08:43)
[2016-12-23] MEDS: VERIFY FENT PATCH TOP SCH ×2 (08:44→21:54)
[2016-12-23] MEDS: SCOPOLAMINE PATCH CHECK TOP SCH (08:44)
--- NOTE | 2016-12-23 10:16 | OR ---
DATE OF PROCEDURE: 12/21/2016 PROCEDURES: 1. Sigmoid colon resection (05723). 2. Mobilization of this splenic flexure (29764). 3. Biopsy of possible peritoneal implant, in association with the sigmoid colon (approximately 2 cm). FINDINGS: 1. Local regional invasion of probable malignancy noted. 2. Inflammation associated with this process in and around the pelvis consistent either inflammatory process or regional invasion. 3. No abnormalities noted on liver palpation. 4. No other palpable abnormalities noted in the remainder of the abdomen. COMPLICATIONS: None. INVESTOR RELATIONS DIRECTOR: None. ANESTHETIC: Epidural/general. INDICATIONS: A 51-year-old male who has had approximately one year history of weight loss. He has lost approximately 117 pounds and he presented to the emergency room and underwent colonoscopy. At approximately 20 cm, a mass concerning for malignancy was biopsied yesterday. Unfortunately, the patient continued to have worsening bowel obstruction, essentially and developed a complete bowel obstruction. Ideally, it was recommended to the patient that we wait pathological results prior to any surgical intervention, however, the patient's status changed and there was concern for perforation due to this complete bowel obstruction. Therefore, risks benefits alternatives limitations including, but not limited to infection, bleeding, the requirement for reoperation ostomy formation and other risks were explained to the patient. I did discuss with the patient also that, although my feeling is that this is a malignancy, there is a possibility that this is a benign lesion, however, that is immaterial due to the fact that the patient has a complete bowel obstruction and requires immediate emergency surgical intervention. They understand these risks and they are very pleased to proceed with the procedure. PROCEDURE IN DETAIL: The patient was placed in supine position. A midline abdominal incision was made. This was carried with electrocautery down to the perineum which was entered sharply without abnormality. The incision will be would be infraumbilical only. Exploratory laparotomy was commenced. No peritoneal implants, no studding, the liver was palpated and was found to be normal. Later in the procedure in proximity to the colon, there was a small stud type implant, however, these were felt to be more lipomatous in nature and not malignant, nonetheless they were sent as specimen #3. The sigmoid colon, the mass was palpated and the ink during the procedure was noted. This would be transected at the sigmoid colon. This was performed and the proximal sigmoid colon. This was measured to be 5 cm from the malignancy at minimum. This was performed by transecting with a blue load. Once this was performed mobilization of splenic flexure was performed for later in the procedure to facilitate a tension-free anastomosis. This was performed with electrocautery. White load staplers were then commenced for the en bloc resection. This inflammation and/or malignant process was known to be in proximity and close association with the area at the vessels with noted dense inflammatory reaction. Therefore, this would be an en bloc resection, however, preservation of the main iliac vessels would be preserved. During this process, multiple staple loads in conjunction with harmonic scalpel was used to resect the mesentery. This was quite thin and no lymph nodes could be palpated. This was then carried down to measure the depth of 5 cm from the distal ink margin. A curvilinear black load stapler was originally attempted, but due to the pelvis, size, and the inflammation, this would be to change to a linear black stapler load. Once this sigmoid colon was transected, a single stitch was placed in the superior margin. This will be opened on the back table and it was felt to be 5 cm of margin from the distal aspect. However, the additional distal aspect of the sigmoid colon would be resected to ensure further margins. Both these specimen stitches were placed in the superior aspect of this marking of their orientation. Once this was performed, the abdomen was thoroughly irrigated. A 26 EEA stapler would be introduced into the distal aspect of the descending colon. This would then be approximated with Kayla clamps and a blue load to close the defect again. The anvil was then passed through this with electrocautery. The EEA stapler would then be introduced transrectally and advanced to the rectal stump. This was then passed through and mated with the anvil. Careful attention was made not to twist the sigmoid colon itself. This was turned to the appropriate green markings and subsequently fired. This was then removed. The donuts were inspected which there were noted and these were also sent for pathology. The donuts were noted to be intact. The abdomen was filled with water and a leak test was performed. As the scope was introduced. During the colonoscopy there was a small remnant of the colon itself noted in the anastomosis this was most consistent with an inverted aspect of the colon due to its obtuse angle of transection by using a black load staplers. This was not felt to be any malignancy as the specimen was opened on the back table to ensure this. After this, the air was desufflated, the abdomen was irrigated with meropenem containing normal saline. Two 10 flat Merrill-Krishnamurthy drains were placed in proximity to the anastomosis, the Tisseel was applied. The fascia was closed with #0 Vicryl running suture. This subcutaneous tissues were irrigated and closed with ellis. The patient tolerated the procedure well. Dakota Livingston MD /[id number]
--- NOTE | 2016-12-23 11:13 | PN ---
DATE OF SERVICE: 12/22/2016 The patient is postop day #1 from a sigmoid colon resection by Dr. Livingston. He is following Fast-track protocol. He did have increased pain early postoperatively and was started on POOL TECHNICIAN but hasn't needed any of that for many hours. We will discontinue that and we will continue the epidural infusion today. Begin the Tylenol and ibuprofen loading and plan to turn the epidural off tomorrow. He will start Entereg and Flomax when we discontinue the Harrington catheter,and begin the bowel stimulation with scheduled Dulcolax and senna. We will plan to turn the epidural off tomorrow at 6:00 a.m. Jovani Swan MD /[id number]
[2016-12-23] MEDS: Pantoprazole 40 MG Tab.CR PO SCH (11:40)
[2016-12-23] MEDS: Ondansetron 4 MG/2 ML SDV IV PRN (11:50)
[2016-12-23] MEDS: Bisacodyl 5 MG Tab PO PRN (14:06)
[2016-12-23] MEDS: Sennosides 8.6 MG Tab PO SCH (15:02)
--- NOTE | 2016-12-23 16:10 | PN ---
DATE OF SERVICE: 12/23/2016 The patient has been afebrile with stable vital signs. It took a while to get pain control satisfactory yesterday, but he now is controlled on a combination of fentanyl patch and PLASTIC SURGERY TECHNICIAN along with scheduled ibuprofen and Tylenol. He is tolerating diet, around 2500 mL in, and he has moved his bowels twice. We will discontinue switch to Dulcolax oral tablets p.r.n., go to oral Protonix, IV to keep open, get in the shower today. We will probably switch over to oral pain medicine tomorrow. Jovani Swan MD /[id number]
[2016-12-23] MEDS: Tamsulosin 0.4 MG Cap.ER PO SCH (21:53)
[2016-12-24] MEDS: Acetaminophen 500 MG Tab PO SCH (03:44)
[2016-12-24] MEDS: Ibuprofen 600 MG Tab PO SCH ×3 (05:20→18:43)
[2016-12-24] MEDS: HYDROmorphone/Normal Saline 15 MG/30 ML PCA IV PRN (05:45)
[2016-12-24] MEDS ORDERED: Sodium Chloride 0.9% 1,000 ML IV SCH (07:15)
[2016-12-24] MEDS: Pantoprazole 40 MG Tab.CR PO SCH (07:17)
[2016-12-24] MEDS ORDERED: Acetaminophen Soln 650 MG/20.3 ML UD Cup PO PRN (07:18)
[2016-12-24] MEDS: VERIFY FENT PATCH TOP SCH ×2 (08:40→20:13)
[2016-12-24] MEDS: SCOPOLAMINE PATCH CHECK TOP SCH (08:40)
[2016-12-24] MEDS ORDERED: Enoxaparin 40 MG/0.4 ML Syringe SUBCUT SCH (09:00)
[2016-12-24] MEDS: Acetaminophen/oxyCODONE 325-5 MG Tab PO PRN ×3 (09:18→20:12)
[2016-12-24] MEDS: Enoxaparin 40 MG/0.4 ML Syringe SUBCUT SCH (09:19)
[2016-12-24] MEDS: Ondansetron 4 MG/2 ML SDV IV PRN ×2 (10:28→17:16)
[2016-12-24] MEDS: Sennosides 8.6 MG Tab PO SCH (13:00)
--- NOTE | 2016-12-24 16:07 | PCM.SURGPN ---
- General Info Date of Service: 12/24/16 Date of Surgery/Procedure: 12/21/16 POD#: 3 Functional Status: Reports: pain controlled, other (Oral intake 1715 mL. Patient afebrile with stable vital signs. JAN drains #1 and 2 are serosanginous and each with 20mL output. Patient denies any pain and voices no other complaints at this time.) - Review of Systems General: Reports: No Symptoms Cardiovascular: Reports: No Symptoms Gastrointestinal: Reports: Constipation Genitourinary: Reports: no symptoms - Patient Data Vitals - most recent: Last Vital Signs Temp 36.8 C 12/24/16 14:37 Pulse 73 12/24/16 14:37 Resp 18 12/24/16 14:37 BP 124/69 12/24/16 14:37 Pulse Ox 97 12/24/16 14:37 Weight - most recent: 87.4 kg I&O - last 24 hours: Intake & Output 12/24/16 12/24/16 12/24/16 06:59 14:59 22:59 Intake Total 1395 600 Output Total 720 300 Balance 675 300 Med Orders - Current: Current Medications Acetaminophen (Tylenol) 650 mg PO Q6H PRN PRN Reason: Pain Albuterol (Proventil Neb Soln) 2.5 mg NEB Q4H PRN PRN Reason: Shortness Of Breath/wheezing Bisacodyl (Dulcolax) 10 mg PO BID PRN PRN Reason: CONSTIPATION Last Admin: 12/23/16 14:06 Dose: 10 mg Enoxaparin Sodium (Lovenox) 40 mg SUBCUT DAILY [facility] Last Admin: 12/24/16 09:19 Dose: 40 mg Fentanyl (Duragesic) 25 mcg TRDERM Q72H [facility] Last Admin: 12/22/16 12:06 Dose: 25 mcg Hydroxyzine HCl (Vistaril) 50 mg IM Q4H PRN PRN Reason: Nausea Ibuprofen (Motrin) 600 mg PO Q6H [facility] Last Admin: 12/24/16 12:55 Dose: 600 mg Lorazepam (Ativan) 1 mg PO Q3H PRN PRN Reason: Anxiety Last Admin: 12/23/16 22:00 Dose: 1 mg Scopolamine Patch (Check) 1 each TOP DAILY [facility] Last Admin: 12/24/16 08:40 Dose: Not Given Verify Fent Patch 0 each TOP BID [facility] Last Admin: 12/24/16 08:40 Dose: Not Given Ondansetron HCl (Zofran) 4 mg IV Q4H PRN PRN Reason: Nausea/Vomiting Last Admin: 12/24/16 10:28 Dose: 4 mg Oxycodone/Acetaminophen (Percocet 325-5 Mg) 1 - 2 tab PO Q4H PRN PRN Reason: paiin Last Admin: 12/24/16 09:18 Dose: 2 tab Pantoprazole Sodium (Protonix) 40 mg PO ACBREAKFAST [facility] Last Admin: 12/24/16 07:17 Dose: 40 mg Senna (Senna) 17.2 mg PO 1400 [facility] Last Admin: 12/24/16 13:00 Dose: 17.2 mg Tamsulosin HCl (Flomax) 0.4 mg PO BEDTIME [facility] Last Admin: 12/23/16 21:53 Dose: 0.4 mg Zolpidem Tartrate (Ambien) 5 mg PO BEDTIME PRN PRN Reason: Sleep Discontinued Medications Acetaminophen (Tylenol) 650 mg PO Q4H PRN PRN Reason: Pain (Mild 1-3)/fever Last Admin: 12/20/16 15:50 Dose: 650 mg Acetaminophen (Tylenol Extra Strength) 1,000 mg PO Q6H [facility] Last Admin: 12/24/16 03:44 Dose: 1,000 mg Alvimopan (Entereg) 12 mg PO BID [facility] Stop: 12/28/16 21:01 Last Admin: 12/22/16 20:32 Dose: 12 mg Bisacodyl (Dulcolax) 20 mg PO ASDIRECTED ONE Stop: 12/19/16 22:01 Last Admin: 12/19/16 22:15 Dose: 20 mg Bisacodyl (Dulcolax) 10 mg PO BID [facility] Last Admin: 12/22/16 20:32 Dose: 10 mg Cefazolin Sodium (Ancef) Confirm Administered Dose 1 gm .ROUTE .STK-MED ONE Stop: 12/21/16 11:44 Last Admin: 12/21/16 13:26 Dose: 1 gm Dexamethasone (Dexamethasone) Confirm Administered Dose 4 mg .ROUTE .STK-MED ONE Stop: 12/21/16 09:38 Diphenhydramine HCl (Benadryl) 25 mg IVPUSH Q6H PRN PRN Reason: ITCHING Enoxaparin Sodium (Lovenox) 40 mg SUBCUT DAILY [facility] Stop: 12/22/16 13:00 Last Admin: 12/22/16 13:55 Dose: Not Given Fentanyl (Sublimaze) Confirm Administered Dose 100 mcg .ROUTE .STK-MED ONE Stop: 12/20/16 11:20 Fentanyl (Sublimaze) Confirm Administered Dose 250 mcg .ROUTE .STK-MED ONE Stop: 12/21/16 09:36 Fentanyl (Sublimaze) Confirm Administered Dose 100 mcg .ROUTE .STK-MED ONE Stop: 12/21/16 11:35 Fentanyl (Sublimaze) Confirm Administered Dose 250 mcg .ROUTE .[employer]-MED ONE Stop: 12/21/16 11:54 Fentanyl (Sublimaze) Confirm Administered Dose 250 mcg .ROUTE .STK-MED ONE Stop: 12/21/16 12:12 Glycopyrrolate () Confirm Administered Dose 1 mg .ROUTE .[employer]-MED ONE Stop: 12/21/16 09:38 Hydromorphone HCl (Dilaudid Computer Systems Architect 15 Mg In Ns 30 Ml) 0 mg IV ASDIRECTED PRN; Protocol PRN Reason: Pain Last Admin: 12/19/16 21:51 Dose: 15 mg Hydromorphone HCl (Dilaudid Computer Systems Architect 15 Mg In Ns 30 Ml) 0 mg IV ASDIRECTED PRN; Protocol PRN Reason: SPECIAL COLLECTIONS LIBRARIAN PAIN CONTROL Last Admin: 12/24/16 05:45 Dose: 15 mg Sodium Chloride (Normal Saline) 1,000 mls @ 150 mls/hr IV ASDIRECTED [facility] Last Admin: 12/20/16 02:24 Dose: 150 mls/hr Sodium Chloride (Normal Saline) 1,000 mls @ 125 mls/hr IV ASDIRECTED [facility] Last Admin: 12/20/16 21:53 Dose: 125 mls/hr Fentanyl 2,500 mcg/ Sodium (Chloride) 250 mls @ 0 mls/hr EPIDUR TITRATE [facility]; Titrate PRN Reason: Protocol Last Admin: 12/22/16 07:56 Dose: 12 mls/hr, 12 mls/hr Sodium Chloride (Normal Saline) Confirm Administered Dose 10 mls @ as directed .ROUTE .STK-MED ONE Stop: 12/21/16 11:35 Lactated Ringer's (Ringers, Lactated) Confirm Administered Dose 1,000 mls @ as directed .ROUTE .STK-MED ONE Stop: 12/21/16 11:37 Metronidazole (Flagyl 500 Mg In Ns 100 Ml) 500 mls @ 500 mls/hr IV ONETIME ONE Stop: 12/21/16 12:59 Last Admin: 12/21/16 14:20 Dose: 500 mls/hr Acetaminophen 1,000 mg/ Premix 100 mls @ 400 mls/hr IV Q6H PRN PRN Reason: Pain Stop: 12/22/16 14:18 Last Admin: 12/21/16 21:26 Dose: 400 mls/hr Sodium Chloride (Normal Saline) 1,000 mls @ 25 mls/hr IV ASDIRECTED KEVIN Last Admin: 12/23/16 19:30 Dose: 75 mls/hr Sodium Chloride (Normal Saline) 1,000 mls @ 25 mls/hr IV ASDIRECTED [facility] Ketorolac Tromethamine (Toradol) 60 mg IM ONETIME ONE Stop: 12/22/16 16:44 Last Admin: 12/22/16 17:08 Dose: 60 mg Lorazepam (Ativan) 1 mg IV Q6H PRN PRN Reason: Nausea/Vomiting Last Admin: 12/20/16 01:28 Dose: 1 mg Lorazepam (Ativan) 0.5 mg IV Q4H PRN PRN Reason: Anxiety Last Admin: 12/22/16 04:08 Dose: 0.5 mg Midazolam HCl (Versed 1 Mg/Ml) Confirm Administered Dose 2 mg .ROUTE .ST-MED ONE Stop: 12/20/16 11:20 Naloxone HCl (Narcan) 0.4 mg IVPUSH Q2M PRN PRN Reason: Respiratory Distress Naloxone HCl (Narcan) 0.1 mg IVPUSH Q5M PRN PRN Reason: RESP RATE LESS THAN 6/MINUTE Naloxone HCl (Narcan) 0.4 mg IV ASDIRECTED PRN PRN Reason: ITCHING Naloxone HCl (Narcan) 0.1 mg IV ASDIRECTED PRN PRN Reason: decreased respiratory rate Neostigmine Methylsulfate (Neostigmine) Confirm Administered Dose 5 mg .ROUTE .STK-MED ONE Stop: 12/21/16 09:38 Ondansetron HCl (Zofran) Confirm Administered Dose 4 mg .ROUTE .STK-MED ONE Stop: 12/21/16 09:38 Pantoprazole Sodium (Protonix Iv) 40 mg IV Q12H [facility] Last Admin: 12/22/16 20:32 Dose: 40 mg Polyethylene Glycol (Miralax) 0 gm PO ONETIME ONE Stop: 12/19/16 22:01 Last Admin: 12/19/16 22:26 Dose: Not Given Polyethylene Glycol (Miralax) 238 gm PO ONETIME ONE Stop: 12/19/16 22:13 Last Admin: 12/19/16 22:34 Dose: 238 gram Propofol (Diprivan 20 Ml) Confirm Administered Dose 200 mg .ROUTE .STK-MED ONE Stop: 12/20/16 11:20 Propofol (Diprivan 20 Ml) Confirm Administered Dose 200 mg .ROUTE .STK-MED ONE Stop: 12/21/16 09:38 Rocuronium [place] (Zemuron) Confirm Administered Dose 50 mg .ROUTE .STK-MED ONE Stop: 12/21/16 09:38 Rocuronium [place] (Zemuron) Confirm Administered Dose 50 mg .ROUTE .STK-MED ONE Stop: 12/21/16 11:57 Scopolamine (Transderm-Scop) 1.5 mg TRDERM Q72H [facility] Stop: 12/24/16 14:00 Last Admin: 12/21/16 15:06 Dose: 1.5 mg Senna (Senna) 17.2 mg PO BEDTIME [facility] Last Admin: 12/21/16 21:25 Dose: 17.2 mg Succinylcholine Chloride (Succinylcholine In Ns Pf) Confirm Administered Dose 200 mg .ROUTE .STK-MED ONE Stop: 12/21/16 09:38 Tamsulosin HCl (Flomax) 0.4 mg PO ONETIME ONE Stop: 12/22/16 09:31 Last Admin: 12/22/16 09:52 Dose: 0.4 mg - Exam Wound/Incisions: dressing dry and intact General: alert, oriented, no acute distress HEENT: Pupils equal, Pupils reactive, Mucous membr. moist/pink Neck: supple Lungs: Clear to auscultation, Normal respiratory effort Cardiovascular: Regular Rate, Regular Rhythm, No Murmurs Abdomen: bowel sounds present, soft, no tenderness Extremities: no edema Skin: warm, dry, intact - Problem List Review Problem List Initiated/Reviewed/Updated: Yes - My Orders Last 24 Hours: Active Orders 24 hr Category Date Time Status Acetaminophen [Tylenol] Med 12/24/16 07:18 Active 650 mg PO Q6H PRN Acetaminophen/oxyCODONE [Percocet 325-5 MG] Med 12/24/16 07:18 Active 1 - 2 tab PO Q4H PRN Convert IV to Saline Lock [OM.PC] Routine Oth 12/24/16 14:23 Ordered Medication Orders Acetaminophen (Tylenol) 650 mg PO Q6H PRN PRN Reason: Pain Albuterol (Proventil Neb Soln) 2.5 mg NEB Q4H PRN PRN Reason: Shortness Of Breath/wheezing Bisacodyl (Dulcolax) 10 mg PO BID PRN PRN Reason: CONSTIPATION Last Admin: 12/23/16 14:06 Dose: 10 mg Enoxaparin Sodium (Lovenox) 40 mg SUBCUT DAILY [facility] Last Admin: 12/24/16 09:19 Dose: 40 mg Admin: 12/23/16 08:43 Dose: 40 mg Fentanyl (Duragesic) 25 mcg TRDERM Q72H [facility] Last Admin: 12/22/16 12:06 Dose: 25 mcg Hydroxyzine HCl (Vistaril) 50 mg IM Q4H PRN PRN Reason: Nausea Ibuprofen (Motrin) 600 mg PO Q6H [facility] Last Admin: 12/24/16 12:55 Dose: 600 mg Admin: 12/24/16 05:20 Dose: 600 mg Admin: 12/23/16 23:28 Dose: 600 mg Admin: 12/23/16 17:52 Dose: 600 mg Admin: 12/23/16 11:40 Dose: 600 mg Admin: 12/23/16 05:59 Dose: 600 mg Admin: 12/23/16 00:15 Dose: Not Given Admin: 12/22/16 17:12 Dose: Admin: 12/22/16 12:06 Dose: Admin: 12/22/16 10:52 Dose: 600 mg Lorazepam (Ativan) 1 mg PO Q3H PRN PRN Reason: Anxiety Last Admin: 12/23/16 22:00 Dose: 1 mg Admin: 12/23/16 14:58 Dose: 1 mg Admin: 12/23/16 03:21 Dose: 1 mg Admin: 12/22/16 16:40 Dose: 1 mg Scopolamine Patch (Check) 1 each TOP DAILY [facility] Last Admin: 12/24/16 08:40 Dose: Admin: 12/23/16 08:44 Dose: Admin: 12/22/16 13:47 Dose: Verify Fent Patch 0 each TOP BID [facility] Last Admin: 12/24/16 08:40 Dose: Admin: 12/23/16 21:54 Dose: Admin: 12/23/16 08:44 Dose: Admin: 12/22/16 20:33 Dose: Ondansetron HCl (Zofran) 4 mg IV Q4H PRN PRN Reason: Nausea/Vomiting Last Admin: 12/24/16 10:28 Dose: 4 mg Admin: 12/23/16 11:50 Dose: 4 mg Admin: 12/22/16 10:17 Dose: 4 mg Oxycodone/Acetaminophen (Percocet 325-5 Mg) 1 - 2 tab PO Q4H PRN PRN Reason: paiin Last Admin: 12/24/16 09:18 Dose: 2 tab Pantoprazole Sodium (Protonix) 40 mg PO ACBREAKFAST [facility] Last Admin: 12/24/16 07:17 Dose: 40 mg Admin: 12/23/16 11:40 Dose: 40 mg Senna (Senna) 17.2 mg PO 1400 [facility] Last Admin: 12/24/16 13:00 Dose: 17.2 mg Admin: 12/23/16 15:02 Dose: Admin: 12/22/16 16:19 Dose: 17.2 mg Tamsulosin HCl (Flomax) 0.4 mg PO BEDTIME [facility] Last Admin: 12/23/16 21:53 Dose: 0.4 mg Admin: 12/22/16 20:33 Dose: 0.4 mg Admin: 12/21/16 21:25 Dose: 0.4 mg Zolpidem Tartrate (Ambien) 5 mg PO BEDTIME PRN PRN Reason: Sleep - Assessment Assessment (Free Text/Narrative):: sigmoid colon resection. Mobilization of splenic flexure. Biopsy of possible peritoneal implant, in association with the sigmoid colon ( approximately 2 cm). - Plan Plan (Free Text/Narrative):: 1. Plan to continue Dulcolax as patient reports one small BM. 2. Continue to control pain w/ extra strength Tylenol and can alternate w/ Ibuprofen PRN. 3. Encouraged ambulation and incentive spirometer. 4. Plan is for patient discharge tomorrow morning.
[2016-12-24] MEDS: LORazepam 1 MG Tab PO PRN ×2 (16:11→22:43)
[2016-12-24] MEDS: Tamsulosin 0.4 MG Cap.ER PO SCH (20:13)
[2016-12-25] MEDS: Acetaminophen/oxyCODONE 325-5 MG Tab PO PRN ×3 (00:04→08:41)
[2016-12-25] MEDS: Ibuprofen 600 MG Tab PO SCH ×2 (00:04→05:14)
[2016-12-25] MEDS: Bisacodyl 5 MG Tab PO PRN (05:14)
[2016-12-25 07:25] VITALS: BP 129/81
[2016-12-25] MEDS: Pantoprazole 40 MG Tab.CR PO SCH (07:30)
[2016-12-25] MEDS: Enoxaparin 40 MG/0.4 ML Syringe SUBCUT SCH (08:43)
[2016-12-25] MEDS: VERIFY FENT PATCH TOP SCH (08:44)
[2016-12-25] MEDS: SCOPOLAMINE PATCH CHECK TOP SCH (08:44)
[2016-12-25] MEDS ORDERED: fentaNYL 25 MCG/HR Transdermal Patch TRDERM SCH (10:00)
[2016-12-25] MEDS: LORazepam 1 MG Tab PO PRN (10:14)
--- NOTE | 2017-01-08 17:15 | PN ---
DATE OF SERVICE: 01/08/2017 DISCHARGE DIAGNOSIS: Sigmoid colon section. HOSPITAL COURSE: A pleasant 51-year-old male who was seen and underwent colonoscopy and was subsequently found to have a bowel obstruction. A portion of this developed into complete bowel obstruction. The patient was taken to the operating room and underwent a sigmoid colon resection. The patient has recovered from this procedure quite well. Prior to discharge, his pain is well controlled. No nausea, vomiting, shortness of breath, or chest pain. He is tolerating diet without complication. FOLLOWUP: Follow up with Surgery in 7 to 10 days. ACTIVITY: No lifting greater than 30 pounds x30 days. DISCHARGE MEDICATIONS: Please see MAR, but include [place] for pain. Dakota Livingston MD /[id number]
--- NOTE | 2017-01-31 09:35 | DISCH ---
HOSPITAL COURSE: This is a pleasant 51-year-old male, noted to have a bowel obstruction due to most likely a sigmoid carcinoma. He was originally notified of the requirement for colonoscopy approximately a year ago, but unfortunately did not complete that. He underwent a hemicolectomy on 12/21/2016. This was a sigmoid colon resection. The patient did well postoperatively. He advanced on his diet in standard fashion. He did not develop any infections or complications. There were no additional consultations with respect to hospitalist service etc. Prior to his discharge, his pain was well controlled and he was having bowel movements. He had no nausea, vomiting, shortness of breath, or chest pain. His vital signs were afebrile for greater than 72 hours. He also had a normal white blood cell count and hemoglobin postoperatively for greater than 72 hours. FOLLOWUP: Follow up surgery in 7 to 14 days. ACTIVITY: No lifting greater than 30 pounds x30 days. DISCHARGE MEDICATIONS: Please see MAR, but include [facility] for pain.
== END 2016-12-25 11:15 | disposition home or self-care (01) | DRG 330 ==
LOC: JP.ED 19:05 → JP.ICU 20:38 → JP.MS 12-20 14:52
PROVIDERS: ADMIT Hospitalist; ATTEND Surgery
PROC: 0DBP8ZX Excision of Rectum, Via Natural or Artificial Opening Endoscopic, Diagnostic (ICD-10-PCS; principal; 2016-12-20)
PROC: 0DBN8ZX Excision of Sigmoid Colon, Via Natural or Artificial Opening Endoscopic, Diagnostic (ICD-10-PCS; principal; 2016-12-20)
PROC: 0DNM0ZZ Release Descending Colon, Open Approach (ICD-10-PCS; 2016-12-21)
PROC: 0DBW0ZX Excision of Peritoneum, Open Approach, Diagnostic (ICD-10-PCS; 2016-12-21)
PROC: 0DTN0ZZ Resection of Sigmoid Colon, Open Approach (ICD-10-PCS; 2016-12-21)
DX: C18.7 Malignant neoplasm of sigmoid colon (principal); K56.60 Unspecified intestinal obstruction; K92.1 Melena; F41.9 Anxiety disorder, unspecified; H54.7 Unspecified visual loss; K44.9 Diaphragmatic hernia without obstruction or gangrene; R53.1 Weakness; K62.1 Rectal polyp
CPT/HCPCS: 36415; 80048; 80053; 81001; 83605; 85025; 86850; 86900; 86901; 86920; 86922; 88305; 88307; 88309; 94762; 96361; 96374; 99285-25; A9270-GY; C9113; J0131; J0690; J1100; J1170; J1650; J1885; J2060; J2250; J2405; J2704; J3010; J7040; J7050; J7120

== ENCOUNTER 2017-06-23 11:20 | Emergency (ER) | payer MEDICAID ==
[2017-06-23 11:54] VITALS: BP 139/94
--- NOTE | 2017-06-23 12:34 | EDM.PDOC ---
ED HPI GENERAL MEDICAL PROBLEM - General Chief Complaint: Gastrointestinal Problem Stated Complaint: BLEEDING RECTURM Time Seen by Provider: 06/23/17 12:13 Source of Information: Reports: Patient, RN Notes Reviewed History Limitations: Reports: No Limitations - History of Present Illness INITIAL COMMENTS - FREE TEXT/NARRATIVE: 51-year-old gentleman presents emergency department today complaint of bright red blood per rectum he has a known history of colon cancer status post resection and chemotherapy he states over the last couple weeks he has noticed blood in his stool after a hard stool with resolution however this last week it has progressed he's noticed a moderate amount of blood in the toilet as well as when he wipes. He denies any other symptoms last colonoscopy was 6 months ago - Related Data Allergies Allergy/AdvReac Type Severity Reaction Status Date / Time No Known Allergies Allergy Verified 12/17/16 11:13 Home Meds: Home Meds LORazepam [Ativan] 0.5 mg PO Q6HR PRN 12/17/16 [History] Past Medical History HEENT History: Reports: Impaired Vision Gastrointestinal History: Reports: Diverticulosis, Hiatal Hernia Musculoskeletal History: Reports: Other (See Below) Other Musculoskeletal History: Previous right hand procedure. Knee surgery Neurological History: Reports: Other (See Below) Other Neuro History: Johnson's palsy Psychiatric History: Reports: Anxiety - Infectious Disease History Infectious Disease History: Reports: Chicken Pox, Mumps, Shingles - Past Surgical History HEENT Surgical History: Reports: Tonsillectomy Musculoskeletal Surgical History: Reports: Arthroscopic Knee, Carpal Tunnel Social & Family History - Tobacco Use Smoking Status *Q: Never Smoker Packs/Tins Daily: 0.5 Second Hand Smoke Exposure: No - Caffeine Use Caffeine Use: Reports: Coffee - Recreational Drug Use Recreational Drug Use: No - Living Situation & Occupation Living situation: Reports: Occupation: Employed (lives with and 4 children ages 17yr,14yr,9yr & 7month on [address]) ED ROS GENERAL - Review of Systems Review Of Systems: See Below Constitutional: Reports: No Symptoms GI/Abdominal: Reports: Bloody Stool, Constipation ED EXAM, GI/ABD - Physical Exam Exam: See Below Exam Limited By: No Limitations General Appearance: Alert, WD/WN, No Apparent Distress Rectal (Males) Exam: Normal Exam, Normal Rectal Tone, Prostate Normal, Heme + Stool Course - Vital Signs Last Recorded V/S: Last Vital Signs Temp 97.7 F 06/23/17 12:01 Pulse 80 06/23/17 12:01 Resp 16 06/23/17 12:01 BP 139/94 H 06/23/17 12:01 Pulse Ox 97 06/23/17 12:01 - Orders/Labs/Meds Labs: Laboratory Tests 06/23/17 Range/Units 12:39 WBC 8.8 (4.5-11.0) K/uL RBC 4.63 (4.30-5.90) M/uL Hgb 15.6 H (12.0-15.0) g/dL Hct 43.4 (40.0-54.0) % MCV 94 (80-98) fL MCH 34 H (27-31) pg MCHC 36 (32-36) % Plt Count 178 (150-400) K/uL Neut % (Auto) 61 (36-66) % Lymph % (Auto) 30 (24-44) % [place] % (Auto) 8 H (2-6) % Eos % (Auto) 1 L (2-4) % Baso % (Auto) 1 (0-1) % Departure - Departure Time of Disposition: 12:58 Disposition: Home, Self-Care 01 Condition: Good Clinical Impression: Bloody stool - Discharge Information Referrals: PCP,None [Primary Care Provider] - Forms: ED Department Discharge Additional Instructions: Please report for your colonoscopy tomorrow call return to the emergency department worsening of symptoms - Assessment/Plan Plan: Assessment Acuity = acute Site and laterality = bright red blood per stool Etiology = unknown etiology Manifestations = none Location of injury = Home Lab values = hemoglobin 15.6, positive occult blood Plan Called discussed case with Dr. Swan general surgery he agreed with the colonoscopy were going to try and coordinate that for tomorrow morning outpatient procedure Patient was in agreement with the plan all questions were answered, they were instructed to return to the emergency department or call for worsening symptoms. This note was dictated using [employer] voice recognition software please call with any questions. ED OTHER PROCEDURES - Procedure Procedure Performed: Preoperative diagnosis prior of blood per stool Postoperative diagnosis same Surgeon Josué OfficerMD Verbal consent was obtained prior to procedure risks and benefits were discussed patient is in agreement and wishes to proceed. Anesthesia none Estimated blood loss none Specimens occult blood screen obtained Summary procedure: Timeout was performed prior to initiation procedure identified correct site, correct patient and correct procedure. After insertion of the endoscope appreciated some scant internal hemorrhoids no active bleeding no fissures no tears no mass Complications none apparent
== END 2017-06-23 13:10 | disposition home or self-care (01) ==
LOC: JP.ED 11:20
DX: K92.1 Melena (principal)
CPT/HCPCS: 36415; 82272; 85025; 99284

== ENCOUNTER 2017-06-24 06:52 | Day surgery (SDC) | payer MEDICAID ==
[2017-06-24] MEDS ORDERED: Dextrose 5%-Lactated Ringers 1,000 ML IV SCH (08:00)
[2017-06-24] MEDS ORDERED: Propofol 200 MG/20 ML SDV ONE (10:25)
[2017-06-24] MEDS ORDERED: Midazolam 1 MG/ML 2 ML SDV ONE (10:25)
[2017-06-24] MEDS ORDERED: fentaNYL 100 MCG/2 ML SDV ONE (10:25)
[2017-06-24 13:13] VITALS: BP 132/86
--- NOTE | 2017-07-01 12:28 | OR ---
DATE OF PROCEDURE: 06/24/2017 PREOPERATIVE DIAGNOSIS: Rectal bleeding status post resection of sigmoid colon carcinoma. POSTOPERATIVE DIAGNOSIS: Rectal bleeding associated with excoriated hemorrhoids (no anastomotic recurrence or additional neoplasia seen in colon). OPERATIVE PROCEDURE: Flexible colonoscopy. ANESTHESIA: IV sedation. INDICATION FOR PROCEDURE: This is a 51-year-old status post a colon resection for a full- thickness colon carcinoma in November of this year. The patient has just finished his chemotherapy. His nithin status was negative for any metastatic nodes at the time of the initial resection. He now presents with some intermittent rectal bleeding. This did occur after a period of some constipation. The plan is to proceed with a flexible colonoscopy with biopsies and/or polypectomy as indicated. The potential risks including bleeding and perforation were discussed, and the patient wishes to proceed. PROCEDURE IN DETAIL: The patient was taken to the operating room and placed in a left lateral decubitus position. IV sedation was administered after which the initial digital rectal exam was performed, it was unremarkable. Colonoscope was then passed into the rectum with retroflexion revealing quite excoriated hemorrhoidal columns. There was no blood or bleeding, but these certainly would be candidates for some intermittent bleeding. The scope was then passed to the level of the cecum. This included nice visualization of the colorectal anastomosis and this was smooth with no evidence of any neoplastic changes and otherwise a completely normal mucosa at that level. The patient apparently had not had much of an examination proximal to the tumor at the time of the resection, but the remainder of the colon proximal third to the anastomosis was likewise normal. There are no additional polyps or other signs of neoplasia. The scope was then withdrawn and the procedure concluded. The patient was taken to the recovery room in satisfactory condition. It would appear that the patient's bleeding is likely related to the hemorrhoids. He is instructed that he has significant ongoing bleeding issues. He should get an appointment with us to consider hemorrhoid banding; otherwise, he probably should have a repeat colonoscopy in something like around 6 months or about a year postop to rule out any additional problems such as anastomotic recurrence. Jovani Swan MD /[id number]
== END 2017-06-24 12:30 | disposition home or self-care (01) ==
LOC: JP.SDS 06:52
PROVIDERS: ATTEND Surgery
DX: K64.4 Residual hemorrhoidal skin tags (principal)
CPT/HCPCS: 45378; J2250; J2704; J3010; J7042

== ENCOUNTER 2017-11-15 06:33 | Day surgery (SDC) | payer MEDICAID ==
[~2017-11-15 06:33] MED LIST: Lactated Ringers 1,000 ML IV SCH
[2017-11-15] MEDS ORDERED: Midazolam 1 MG/ML 2 ML SDV ONE (07:23)
[2017-11-15] MEDS ORDERED: fentaNYL 100 MCG/2 ML SDV ONE (07:23)
[2017-11-15] MEDS ORDERED: Propofol 200 MG/20 ML SDV ONE (07:23)
[2017-11-15 10:43] VITALS: BP 134/68
--- NOTE | 2017-11-15 12:56 | OR ---
DATE OF PROCEDURE: 11/15/2017 PREOPERATIVE DIAGNOSES: History of sigmoid adenocarcinoma, spasm versus narrow lesion at splenic flexure. POSTOPERATIVE DIAGNOSES: Unremarkable colonoscopy, history of sigmoid colon cancer. PROCEDURE: Colonoscopy to the cecum. SURGEON: Fre Lancaster MD ANESTHESIA: IV anesthesia with monitored anesthesia care. INDICATION: This 52-year-old white male who, about a year ago, was found to have a sigmoid colon cancer. He underwent a sigmoid resection. He had a followup colonoscopy for some hematochezia in June of last year. Last week, he underwent a CAT scan of his abdomen and pelvis, which showed a possible narrow lesion at the splenic flexure. The concern is for a rapidly-growing tumor versus spasm. A request was then made for a colonoscopy at this time. I counseled him for the procedure, including risks and alternatives, and he gave his informed consent to proceed. DESCRIPTION OF PROCEDURE: The patient was placed in the left lateral decubitus position. IV anesthesia was administered by the Anesthesia service. Time-out was held. A rectal exam was performed, which was unremarkable. The flexible video Olympus colonoscope was introduced through his anus, up his rectum, and out his colon, all the way to the cecum. Once the cecum was reached, the scope was slowly withdrawn, examining the mucosa throughout. No mucosal abnormalities were noted. The area of the splenic flexure appeared unremarkable. The anastomosis looked well with no evidence of local recurrence. The scope was retroflexed in the rectum with the distal rectum appearing unremarkable. There was some minor hemorrhoidal tissue present. The scope was straightened and removed. He tolerated the procedure well. Fer Lancaster MD /[id number]
== END 2017-11-15 09:20 | disposition home or self-care (01) ==
LOC: JP.SDS 06:33
PROVIDERS: ATTEND Surgery
DX: Z08 Encounter for follow-up examination after completed treatment for malignant neoplasm (principal); K21.9 Gastro-esophageal reflux disease without esophagitis; K64.9 Unspecified hemorrhoids; Z90.49 Acquired absence of other specified parts of digestive tract; Z85.038 Personal history of other malignant neoplasm of large intestine
CPT/HCPCS: 45378; J2250; J2704; J3010; J7120

== ENCOUNTER 2018-01-20 19:19 | Emergency (ER) | payer MEDICAID ==
[2018-01-20 20:51] VITALS: BP 155/86
--- NOTE | 2018-01-20 22:28 | EDM.PDOC ---
ED HPI GENERAL MEDICAL PROBLEM - General Chief Complaint: Skin Complaint Stated Complaint: PURPLISH RING TYPE RASH ON HANDS AND FINGERS Time Seen by Provider: 01/20/18 22:21 Source of Information: Reports: Patient, Family (Spouse), RN Notes Reviewed History Limitations: Reports: No Limitations - History of Present Illness INITIAL COMMENTS - FREE TEXT/NARRATIVE: Here with his Chief complaint Rash on hands History of present illness 82-year-old male who started developing a rash on the dorsum of his left hand after intravenous was removed. This was done for colonoscopy. It has a purplish discoloration to it and is raised and firm. Now he also has on the dorsum of his right hand. No history of similar rash previously Not itchy and not painful Patient waited considerable time to be seen in emergency - Related Data Allergies Allergy/AdvReac Type Severity Reaction Status Date / Time No Known Allergies Allergy Verified 01/20/18 20:55 Home Meds: Home Meds Betamethasone Valerate 15 gm TP BID #15 cream..g. 01/20/18 [Rx] Past Medical History HEENT History: Reports: Impaired Vision, Otitis Media Respiratory History: Reports: None Gastrointestinal History: Reports: Bowel Obstruction, Chronic Constipation, Colon Polyp Genitourinary History: Reports: None Musculoskeletal History: Reports: Gout, Other (See Below) Other Musculoskeletal History: Previous right hand procedure. Knee surgery Neurological History: Reports: Other (See Below) Other Neuro History: Johnson's palsy Psychiatric History: Reports: Anxiety, Depression, OCD Endocrine/Metabolic History: Reports: Obesity/BMI 30+ Hematologic History: Reports: None Immunologic History: Reports: None Oncologic (Cancer) History: Reports: Colon, Other (See Below) Other Oncologic History: chemo last month [id number] Dermatologic History: Reports: None - Infectious Disease History Infectious Disease History: Reports: Chicken Pox, Mumps, Shingles - Past Surgical History Head Surgeries/Procedures: Reports: None HEENT Surgical History: Reports: Tonsillectomy Cardiovascular Surgical History: Reports: None Respiratory Surgical History: Reports: None GI Surgical History: Reports: Colon, Colonoscopy, EGD, Polypectomy, Other (See Below) Other GI Surgeries/Procedures: colon resection-11/2016 Endocrine Surgical History: Reports: None Neurological Surgical History: Reports: None Musculoskeletal Surgical History: Reports: Arthroscopic Knee, Carpal Tunnel Oncologic Surgical History: Reports: None Dermatological Surgical History: Reports: None Social & Family History - Tobacco Use Smoking Status *Q: Never Smoker - Caffeine Use Caffeine Use: Reports: Coffee - Recreational Drug Use Recreational Drug Use: No - Living Situation & Occupation Living situation: Reports: Occupation: Employed (lives with and 4 children ages 17yr,14yr,9yr & 7month on [address]) ED ROS GENERAL - Review of Systems Review Of Systems: ROS reveals no pertinent complaints other than HPI. Skin: Reports: Other (Rash on both hands) Neurological: Reports: No Symptoms ED EXAM, SKIN/RASH Exam: See Below Exam Limited By: No Limitations General Appearance: Alert, No Apparent Distress, Other (Appears well apart from his hands,Vital signs normal) Respiratory/Chest: No Respiratory Distress, No Accessory Muscle Use Cardiovascular: Normal Peripheral Pulses, Regular Rate, Rhythm Neurological: Alert, Oriented, No Motor/Sensory Deficits Skin: Warm, Dry, Rash (Dorsum both hands, larger purplish annular with raised borders left hand dorsum and a smaller patch on the right hand) Course - Vital Signs Last Recorded V/S: Last Vital Signs Temp 36.7 C 01/20/18 20:58 Pulse 82 01/20/18 20:58 Resp 16 01/20/18 20:58 BP 155/86 H 01/20/18 20:58 Pulse Ox 96 01/20/18 20:58 - Re-Assessments/Exams Free Text/Narrative Re-Assessment/Exam: 01/21/18 03:53 52-year-old male with purplish discoloration on the dorsum of his left and right hands, differential diagnosis includes lichen planus, erythema annulare, drug reaction Recommend dermatology referral Betamethasone valerate cream twice daily maximum 2 weeks to the affected area Departure - Departure Time of Disposition: 22:27 Disposition: Home, Self-Care 01 Condition: Good Clinical Impression: Rash - Discharge Information Prescriptions: Betamethasone Valerate 15 gm TP BID #15 cream..g. Instructions: Rash Referrals: PCP,None [Primary Care Provider] - Forms: ED Department Discharge Additional Instructions: dermatology appointment is strongly recommended in the meantime a steroid cream can be used to see if it helps improve the rash, maximum 2 weeks
== END 2018-01-20 22:37 | disposition home or self-care (01) ==
LOC: JP.ED 19:19
DX: R21 Rash and other nonspecific skin eruption (principal)
CPT/HCPCS: 99283

== ENCOUNTER 2019-01-09 05:40 | Emergency (ER) | payer MEDICAID ==
[2019-01-09 06:13] VITALS: BP 137/81
[2019-01-09] MEDS ORDERED: Ketorolac 60 MG/2 ML SDV IM ONE (06:25)
[2019-01-09] MEDS ORDERED: Cyclobenzaprine 10 MG Tab PO ONE (06:25)
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
--- NOTE | 2019-01-09 09:21 | CRLCR ---
INDICATION: Shoulder pain COMPARISON: none TECHNIQUE: Four view right shoulder FINDINGS: The AC joint and glenohumeral joint are anatomically aligned. There is no evidence of fracture, erosion or intrinsic bone lesion. The soft tissues appear normal. IMPRESSION: Negative right shoulder. Dictated by Sonny Manley MD @ 01/09/2019 9:18:02 AM Dictated by: Sonny Manley MD @ 01/09/2019 09:18:21 (Electronically Signed)
== END 2019-01-09 08:09 | disposition home or self-care (01) ==
LOC: JP.ED 05:40
DX: S16.1XXA Strain of muscle, fascia and tendon at neck level, initial encounter (principal); S46.911A Strain of unspecified muscle, fascia and tendon at shoulder and upper arm level, right arm, initial encounter; F41.9 Anxiety disorder, unspecified; F32.9 Major depressive disorder, single episode, unspecified; Z79.899 Other long term (current) drug therapy; Y04.0XXA Assault by unarmed brawl or fight, initial encounter
CPT/HCPCS: 73030; 96372; 99283; A9270; J1885

== ENCOUNTER 2020-01-14 08:04 | Day surgery (SDC) | payer MEDICAID ==
[2020-01-14] MEDS ORDERED: Propofol 200 MG/20 ML SDV ONE (08:47)
[2020-01-14] MEDS ORDERED: fentaNYL 100 MCG/2 ML SDV ONE (08:47)
[2020-01-14] MEDS ORDERED: Midazolam 1 MG/ML 2 ML SDV ONE (08:47)
[2020-01-14] MEDS ORDERED: Sodium Chloride 0.9% 1,000 ML IV SCH (09:45)
[2020-01-14 11:00] VITALS: BP 110/71; PULSE 71
--- NOTE | 2020-01-14 13:07 | OR ---
DATE OF PROCEDURE: 01/14/2020 SURGEON: Dakota Livingston MD PROCEDURE: Colonoscopy. FINDINGS: 1. Polyp in descending colon, approximately 5 mm, completely removed using cold biopsy forceps. 2. Normal colonic anastomosis. COMPLICATION: None. BLOWER INSULATOR: None. ANESTHESIA: MAC. PREOPERATIVE DIAGNOSIS: History of colorectal cancer. POSTOPERATIVE DIAGNOSIS: History of colorectal cancer. RISKS: Risks, benefits, alternatives, and limitations including, but not limited to infection, bleeding, and perforation were explained to the patient, who wished to proceed. PROCEDURE IN DETAIL: The patient was placed in left lateral decubitus position. Digital rectal exam was performed without abnormality. Scope was introduced and advanced atraumatically to the ileocecal valve. Scope was brought back into the descending colon, and the aforementioned polyp was identified and completely removed. No abnormalities on retroflexion. The anastomosis at the sigmoid colon was normal and without evidence of malignancy. The patient tolerated the procedure well. Dakota Livingston MD /[id number]
== END 2020-01-14 11:25 | disposition home or self-care (01) ==
LOC: JP.SDS 08:04
PROVIDERS: ATTEND Surgery
DX: Z12.11 Encounter for screening for malignant neoplasm of colon (principal); D12.4 Benign neoplasm of descending colon; K21.9 Gastro-esophageal reflux disease without esophagitis; F41.9 Anxiety disorder, unspecified; Z85.038 Personal history of other malignant neoplasm of large intestine; Z98.890 Other specified postprocedural states; Z87.891 Personal history of nicotine dependence; Z88.8 Allergy status to other drugs, medicaments and biological substances; Z87.19 Personal history of other diseases of the digestive system
CPT/HCPCS: 45380; J2250; J2704; J3010; J7030; 88305

== ENCOUNTER 2020-04-05 12:46 | Emergency (ER) | payer MEDICAID ==
[2020-04-05] MEDS ORDERED: fentaNYL 100 MCG/2 ML SDV IM ONE (14:08)
--- NOTE | 2020-04-05 14:14 | EDM.PDOC ---
ED HPI GENERAL MEDICAL PROBLEM - General Chief Complaint: Abdominal Pain Stated Complaint: FROM CLINIC Time Seen by Provider: 04/05/20 13:50 Source of Information: Reports: Patient, Family, Old Records, RN Notes Reviewed History Limitations: Reports: No Limitations - History of Present Illness INITIAL COMMENTS - FREE TEXT/NARRATIVE: 54-year-old gentleman presents emergency department a complaint of abdominal pain, he was sent over from the clinic evaluated by the oncologist felt this gentleman needed further evaluation in the emergency department. He states he been having abdominal pain for the last 9 days he was evaluated from the clinic with a CAT scan follow-up chest abdomen pelvis which did not reveal any etiology of his abdominal pain. He states the abdominal pain has progressively gotten worse over the last 9 days. He has had soft yellow stools that are foul- smelling. Pain is exacerbated by eating it is predominantly in the epigastric area nausea can come in waves no shortness of breath no chest pain Abdominal Pain Score (Numeric/FACES): 10 - Related Data Allergies Allergy/AdvReac Type Severity Reaction Status Date / Time prednisone Allergy Rash Verified 01/12/20 09:40 Home Meds: Home Meds ClonazePAM [KlonoPIN] 1 tab PO BID PRN 01/09/19 [History] PARoxetine [Paxil] 20 mg PO DAILY 01/09/19 [History] Esomeprazole Magnesium [Nexium] 40 mg PO DAILY 01/12/20 [History] Past Medical History HEENT History: Reports: Impaired Vision, Otitis Media Gastrointestinal History: Reports: Bowel Obstruction, Chronic Constipation, Colon Polyp Musculoskeletal History: Reports: Gout, Other (See Below) Other Musculoskeletal History: BILATERAL CTR. Knee surgery Neurological History: Reports: Other (See Below) Other Neuro History: Johnson's palsy Psychiatric History: Reports: Anxiety, Depression, OCD Endocrine/Metabolic History: Reports: Obesity/BMI 30+ Hematologic History: Reports: None Immunologic History: Reports: None Oncologic (Cancer) History: Reports: Colon, Other (See Below) Other Oncologic History: chemo last month [id number] Dermatologic History: Reports: None - Infectious Disease History Infectious Disease History: Reports: Chicken Pox, Measles, Mumps, Shingles - Past Surgical History Head Surgeries/Procedures: Reports: None HEENT Surgical History: Reports: Tonsillectomy Cardiovascular Surgical History: Reports: None GI Surgical History: Reports: Colon, Colonoscopy, EGD, Polypectomy, Other (See Below) Other GI Surgeries/Procedures: colon resection-11/2016 Neurological Surgical History: Reports: None Musculoskeletal Surgical History: Reports: Arthroscopic Knee, Carpal Tunnel Oncologic Surgical History: Reports: None Dermatological Surgical History: Reports: None Social & Family History - Tobacco Use Smoking Status *Q: Former Smoker Used Tobacco, but Quit: Yes Month/Year Tobacco Last Used: 2016 - Caffeine Use Caffeine Use: Reports: None Caffeine Use Comment: quit 2017 - Recreational Drug Use Recreational Drug Use: No - Living Situation & Occupation Living situation: Reports: Occupation: Employed (lives with and 4 children ages 17yr,14yr,9yr & 7month on [address]) ED ROS GENERAL - Review of Systems Review Of Systems: See Below Constitutional: Reports: Night Sweats HEENT: Reports: No Symptoms Respiratory: Reports: No Symptoms Cardiovascular: Reports: No Symptoms GI/Abdominal: Reports: Abdominal Pain, Nausea, Other (Foul-smelling stools yellow in color). Denies: Constipation, Diarrhea : Reports: No Symptoms ED EXAM, GI/ABD - Physical Exam Exam: See Below Exam Limited By: No Limitations General Appearance: Alert, WD/WN, No Apparent Distress Respiratory/Chest: No Respiratory Distress GI/Abdominal Exam: Normal Bowel Sounds, Soft, No Distention, Tender (Epigastric region) Course - Vital Signs Last Recorded V/S: Last Vital Signs Temp 97.3 F 04/05/20 13:27 Pulse 85 04/05/20 13:27 Resp 16 04/05/20 13:27 BP 143/89 H 04/05/20 13:27 Pulse Ox 99 04/05/20 13:27 - Orders/Labs/Meds Orders: Active Orders 24 hr Category Date Time Status Abdomen Ltd [US] Stat Exams 04/05/20 14:08 Taken Labs: Laboratory Tests 04/05/20 04/05/20 Range/Units 14:21 14:21 Troponin I < 0.017 (0.000-0.056) ng/mL Lipase 233 (73-393) U/L Meds: Medications Discontinued Medications Generic Name Dose Route Start Last Admin Trade Name Freq PRN Reason Stop Dose Admin Fentanyl 50 mcg 04/05/20 14:08 04/05/20 14:19 Sublimaze IM 04/05/20 14:09 50 mcg ONETIME ONE Administration Departure - Departure Time of Disposition: 15:05 Disposition: Home, Self-Care 01 Condition: Fair Clinical Impression: Abdominal pain Qualifiers: Abdominal location: epigastric Qualified Code(s): R10.13 - Epigastric pain - Discharge Information Instructions: Abdominal Pain, Adult Referrals: PCP,None [Primary Care Provider] - Forms: ED Department Discharge Additional Instructions: Use hydrocodone as needed for pain control, use the Ativan as needed for anxiety symptoms please follow-up with your primary care in the next 3 to 5 days for reevaluation Sepsis Event Note (ED) - Evaluation Sepsis Screening Result: No Definite Risk - Focused Exam Vital Signs: Vital Signs Temp Pulse Resp BP Pulse Ox 04/05/20 13:27 97.3 F 85 16 143/89 H 99 04/05/20 12:59 97.3 F 85 16 143/89 H 99 - My Orders Last 24 Hours: My Active Orders 04/05/20 14:08 Abdomen Ltd [US] Stat - Assessment/Plan Last 24 Hours: My Active Orders 04/05/20 14:08 Abdomen BioMCN [US] Stat Plan: Assessment Acuity = acute Site and laterality = epigastric abdominal pain Etiology = unknown suspicious for mental health component Manifestations = none Location of injury = Home Lab values = lipase, troponin negative ultrasound does not reveal any acute process Plan I did review lab work ultrasound results with him he is concerned about his anxiety he is can follow-up with primary care for further evaluation he has a referral into a mental health provider prescription written for hydrocodone 5/325 1 tab p.o. 3 times daily PRN total #10 as well as Ativan 1 mg p.o. 3 times daily PRN total #10 This note was dictated using [email or web address] voice recognition software please call with any questions on syntax or grammar.
[2020-04-05 15:20] VITALS: BP 135/70; PULSE 75
--- NOTE | 2020-04-06 10:40 | US ---
Abdomen Ltd CLINICAL HISTORY: History of colon cancer COMPARISON: None. TECHNIQUE: Real-time images were obtained through the right upper quadrant. FINDINGS: The liver is free of mass or biliary dilatation. Hepatic parenchyma is homogeneous throughout. The gallbladder is contracted. No stone is seen. The common bile duct measures 4 mm. The pancreas is free of mass. The right kidney has a normal appearance. The IVC is normal. IMPRESSION: Contracted gallbladder. This is nonspecific. No stones are seen. There is no biliary dilatation
== END 2020-04-05 15:21 | disposition home or self-care (01) ==
LOC: JP.ED 12:46
DX: R10.13 Epigastric pain (principal); E66.9 Obesity, unspecified; F41.9 Anxiety disorder, unspecified; F32.9 Major depressive disorder, single episode, unspecified; Z88.8 Allergy status to other drugs, medicaments and biological substances; Z79.899 Other long term (current) drug therapy; Z87.891 Personal history of nicotine dependence; Z68.29 Body mass index [BMI] 29.0-29.9, adult
CPT/HCPCS: 36415; 76705; 83690; 84484; 96372; 99284; J3010

== ENCOUNTER 2021-07-20 09:49 | Day surgery (SDC) | payer MEDICAID ==
[~2021-07-20 09:49] MED LIST changes: +Bupivacaine 0.5% 50 ML MDV ONE; -Lactated Ringers 1,000 ML IV SCH; +Lidocaine 1% with EPINEPHrine 1:100,000 50 ML MDV ONE
[2021-07-20] MEDS ORDERED: ceFAZolin 2 GM in Premix Bag 1 BAG IV ONE (10:45)
[2021-07-20] MEDS ORDERED: Dextrose 5%-Lactated Ringers 1,000 ML IV SCH (10:45)
[2021-07-20] MEDS ORDERED: Propofol 200 MG/20 ML SDV ONE ×3 (10:54→13:08)
[2021-07-20] MEDS ORDERED: Midazolam 1 MG/ML 2 ML SDV ONE ×2 (10:54→12:51)
[2021-07-20] MEDS ORDERED: fentaNYL 100 MCG/2 ML SDV ONE (10:54)
[2021-07-20] MEDS ORDERED: Lidocaine 0.5% 50 ML SDV ONE (10:56)
[2021-07-20] MEDS ORDERED: Bupivacaine 0.5% 50 ML MDV INJECT ONE ×2 (13:14)
[2021-07-20] MEDS ORDERED: Bacitracin Oint 1 GM U/D Packet ONE (13:30)
--- NOTE | 2021-07-20 14:51 | CR ---
Fluoro Up To 1Hr CLINICAL HISTORY: Foreign body FINDINGS: There is a single lateral image of the distal third finger. Shows a small soft tissue defect at the site of a previous foreign body. Second image shows of cylindrical foreign body which is stated to be a spine from the dorsal fin a small mouth pierre IMPRESSION: Images of foreign body retrieval
[2021-07-20 15:18] VITALS: BP 152/88; PULSE 66
--- NOTE | 2021-07-30 12:01 | OR ---
DATE OF PROCEDURE: 07/20/2021 SURGEON: Jovani Swan MD PREOPERATIVE DIAGNOSIS: Foreign body, right middle finger. POSTOPERATIVE DIAGNOSIS: Foreign body, right middle finger extending nearly to the periosteum of the distal phalanx. OPERATIVE PROCEDURE: Removal of foreign body, right middle finger (). ANESTHESIA: IV block plus sedation. INDICATION FOR PROCEDURE: A 56-year-old male presenting with a ray from a dorsal that had broken off into the depths of his index finger. This was located on the plantar aspect over the distal phalanx. This occurred back in November or December of this past summer and continues to have quite a bit of pain in the area. He was seen in the clinic and an x-ray of the lateral aspect did show a bony ray present in the distal aspect of the finger. Plan is to proceed with removal of this with fluoroscopic surveillance. Potential risks of procedure including bleeding, infection, injury to the underlying tendinous structures, or removal of foreign body were all reviewed, and the patient wishes to proceed. DETAILS OF PROCEDURE: The patient was taken to the operating room, placed in a supine position. IV block was placed affecting the right forearm and hand. Those areas were then prepped and draped. The area closest to the end of the bony ray was then anesthestized with 1% lidocaine. After evaluation of the area with fluoroscopy, a small stab wound was made. The patient was noted to have quite dense scar around the foreign body as one would expect. There was no sign of infection per se. The tip of this extended up into the area which would be occupied by the distalmost tendon at its attachment to the distal phalanx. The foreign body was then removed in 2 parts with breaking off somewhat initially. The remainder of the foreign body was then removed with fine mosquito forceps. After dissecting through the scar surrounding the foreign body, the 2 complete parts of the bony ray were then placed and fluoroscopic evaluation showed that to be consistent with a complete removal. Likewise, there was no evidence of any remaining extra bony material within the finger on fluoroscopy. A [id number] stitch of 5-0 Prolene was placed and the patient tolerated the procedure well. Follow up will be p.r.n. Jovani Swan MD /[id number]
== END 2021-07-20 15:20 | disposition home or self-care (01) ==
LOC: JP.SDS 09:49
PROVIDERS: ATTEND Surgery
DX: M79.5 Residual foreign body in soft tissue (principal); K21.9 Gastro-esophageal reflux disease without esophagitis; Z88.8 Allergy status to other drugs, medicaments and biological substances
CPT/HCPCS: 20525; 76000; J0690; J2250; J2704; J3010; J3490; J7121

== ENCOUNTER 2023-05-13 09:16 | Day surgery (SDC) | payer MEDICAID ==
[2023-05-13] MEDS ORDERED: ceFAZolin 2 GM in Premix Bag 1 BAG IV ONE (10:00)
[2023-05-13] MEDS ORDERED: Lactated Ringers 1,000 ML IV SCH (10:00)
[2023-05-13] MEDS ORDERED: Nozin Nasal Sanitizer NASBOTH ONE (10:00)
[2023-05-13] MEDS ORDERED: Midazolam 1 MG/ML 2 ML SDV ONE ×2 (10:35→13:28)
[2023-05-13] MEDS ORDERED: Propofol 200 MG/20 ML SDV ONE ×4 (10:35→13:57)
[2023-05-13] MEDS ORDERED: fentaNYL 100 MCG/2 ML SDV ONE ×2 (10:35→13:29)
[2023-05-13] MEDS ORDERED: Bupivacaine 0.5% 30 ML SDV ONE (11:16)
[2023-05-13] MEDS ORDERED: Lactated Ringers 1,000 ML ONE (14:37)
[2023-05-13] MEDS ORDERED: Acetaminophen/oxyCODONE 325-5 MG Tab PO PRN (15:41)
[2023-05-13] MEDS ORDERED: Ondansetron 4 MG/2 ML SDV IVPUSH ONE (15:45)
[2023-05-13 17:06] VITALS: PULSE 71
[2023-05-13 17:34] VITALS: BP 167/95
== END 2023-05-13 18:04 | disposition home or self-care (01) ==
LOC: JP.SDS 09:16
PROVIDERS: ATTEND Specialist
DX: S43.432A Superior glenoid labrum lesion of left shoulder, initial encounter (principal); M77.8 Other enthesopathies, not elsewhere classified; M75.52 Bursitis of left shoulder; R73.01 Impaired fasting glucose; K21.9 Gastro-esophageal reflux disease without esophagitis; F41.9 Anxiety disorder, unspecified; I10 Essential (primary) hypertension; F17.200 Nicotine dependence, unspecified, uncomplicated; G89.29 Other chronic pain; Z79.899 Other long term (current) drug therapy
CPT/HCPCS: 29807; 29826; A9270; C1713; J0690; J2250; J2405; J2704; J3010; J3490; J7120

== ENCOUNTER 2023-08-22 07:43 | Day surgery (SDC) | payer MEDICAID ==
[2023-08-22] MEDS ORDERED: Sodium Chloride 0.9% 1,000 ML IV SCH (08:15)
[2023-08-22] MEDS ORDERED: Propofol 200 MG/20 ML SDV ONE (08:21)
[2023-08-22] MEDS ORDERED: fentaNYL 50 MCG/ML SDV ONE (08:21)
[2023-08-22] MEDS ORDERED: Midazolam 1 MG/ML 2 ML SDV ONE (08:21)
[2023-08-22 10:39] VITALS: BP 139/86; PULSE 61
== END 2023-08-22 10:44 | disposition home or self-care (01) ==
LOC: JP.SDS 07:43
PROVIDERS: ATTEND Surgery
DX: Z12.11 Encounter for screening for malignant neoplasm of colon (principal); K21.9 Gastro-esophageal reflux disease without esophagitis; I10 Essential (primary) hypertension; E78.5 Hyperlipidemia, unspecified; F17.200 Nicotine dependence, unspecified, uncomplicated; F41.9 Anxiety disorder, unspecified
CPT/HCPCS: 45378; J2250; J2704; J3010; J7030

== ENCOUNTER 2024-09-25 09:13 | Day surgery (SDC) | payer MEDICAID ==
[~2024-09-25 09:13] MED LIST changes: -Bupivacaine 0.5% 50 ML MDV ONE; -Lidocaine 1% with EPINEPHrine 1:100,000 50 ML MDV ONE; +Midazolam 1 MG/ML 2 ML SDV ONE; +Propofol 200 MG/20 ML SDV ONE; +fentaNYL 100 MCG/2 ML SDV ONE
[2024-09-25] MEDS: Lactated Ringers 1,000 ML IV SCH (10:01)
[2024-09-25 11:42] VITALS: BP 126/92; PULSE 68
== END 2024-09-25 12:05 | disposition home or self-care (01) ==
LOC: JP.SDS 09:13
PROVIDERS: ATTEND Surgery
DX: K22.70 Barrett's esophagus without dysplasia (principal); R13.10 Dysphagia, unspecified; K22.89 Other specified disease of esophagus; K21.9 Gastro-esophageal reflux disease without esophagitis
CPT/HCPCS: 43239; J2250; J2704; J3010; J7120; 88305